=== PATIENT | female | born 1985 | race Caucasian/White ===

== ENCOUNTER 2021-12-22 14:32 | Emergency (ER) | payer SELFPAY ==
--- NOTE | ~2021-12-22 | CT_ITS ---
EXAMINATION: CT abdomen pelvis w con DATE: 12/22/2021 16:13 INDICATION: Abdominal pain TECHNIQUE: Computed tomography (CT) of the abdomen and pelvis was performed with 100 cc Omnipaque 350 intravenous contrast. Automated exposure control and iterative reconstruction technique were employe d. Exam dose: 740.55 mGy-cm total exam DLP. COMPARISON: None. FINDINGS: The lung bases are clear. Normal heart size. No pericardial or pleural effusion. There are multiple gallstones. There is borderline gallbladder wall thickening/edema. Acute or chrome cleaner nicolasa cholecystitis cannot be excluded. No bile duct or pancreatic dilatation. No hepatic, pancreatic or splenic space occupying mass lesion. Normal morphology of the adrenal glands. 6 mm right renal cyst. No urinary tract calculus or hydroureteronephrosis. Involuting peripherally enhancing 1.2 x 1.7 cm right and 1.3 x 1.9 cm left ovarian cysts. Small fr ee fluid collection in the posterior cul de sac. IUD within uterus. Occasional small bowel and colonic air fluid levels, suggesting enterocolitis or mild adynamic ileus. No bowel obstruction or free air. Small fat containing umbilical hernia. Included skeletal structures are unremarkable. IMPRESSION: Cholelithiasis; cannot exclude acute or chronic cholecystitis Reviewed, dictated and finalized at [facility]. Reviewed, dictated and finalized at [facility].
[2021-12-22 14:40] VITALS: BP 135/88; PULSE 74; RESP 16; TEMP 36.6; O2SAT 100
--- NOTE | 2021-12-22 14:56 | ECG_ITS ---
Measurements Intervals [place] Rate: 50 P: 31 FL: 137 QRS: -1 QRSD: 78 T: 36 QT: 438 QTc: 401 Interpretive Statements SINUS BRADYCARDIA WITH SINUS ARRHYTHMIA DELAYED PRECORDIAL R/S TRANSITION BASELINE ARTIFACT- II, III, AVF, V5 BORDERLINE ECG NO PREVIOUS ECG AVAILABLE FOR COMPARISON Electronically Signed On 12-22-2021 16:50:49 CDT by Billy Mckeon D.O.
[2021-12-22] MEDS: SODIUM CHLORIDE 0.9% IV 1,000 ML 999 ML IV CONT (15:13)
[2021-12-22 15:14] LABS: Basophils Absolute Auto 0.05 K/mm3 (0.00-0.10); Basophils Percent Auto 0.6 % (0.0-1.0); Eosinophils Absolute Auto 0.08 K/mm3 (0.02-0.50); Hematocrit 46.2 % (35.0-49.0); Hemoglobin 15.3 g/dL (12.0-15.0); Immature Granulocyte Absolute 0.02 K/mm3 (0.00-0.00); Immature Granulocyte Percent A 0.2 % (0.0-0.0); Lymphocytes Absolute Auto 2.08 K/mm3 (1.10-4.50); Lymphocytes Percent Auto 25.9 % (18.0-42.0); Mean Corpuscular HGB Conc 33.1 g/dL (32.0-36.0); Mean Corpuscular Hemoglobin 30.7 pg (27.0-31.0); Mean Corpuscular Volume 92.8 fL (78.0-102.0); Mean Platelet Volume 9.6 fl (9.2-11.8); Monocytes Absolute Auto 0.56 K/mm3 (0.10-0.90); Neutrophils Absolute Auto 5.2 K/mm3 (1.7-7.2); Neutrophils Percent Auto 65.3 % (50.0-70.0); Platelet Count Result 269 K/mm3 (150-420); Red Blood Count 4.98 M/mm3 (4.20-5.40); Red Cell Distribution Width 13.4 % (11.6-14.4)
[2021-12-22] MEDS: PANTOPRAZOLE SODIUM IV 40 MG VIAL IV PUSH (15:14)
[2021-12-22] MEDS: ONDANSETRON INJ 4 MG/2 ML VIAL IV PUSH (15:14)
[2021-12-22 15:15] LABS: Add Urine Microscopic? YES; Bilirubin Urine 1+ (Negative); Blood Urine 2+ (Negative); Color Urine Yellow (Yellow); Glucose Urine UA Negative (Negative); Ketones Urine 3+ (Negative); Leukocyte Esterase Ur 2+ (Negative); Nitrate Urine Negative (Negative); Protein Urine 1+ (Negative); Specific Grav Ur >= 1.030 (1.010-1.020); Urobilinogen Urine 0.2 mg/dL (0.2-1.0)
[2021-12-22 15:22] LABS: Appearance Urine Cloudy (Clear); Bacteria Urine 2+ /hpf; Pregnancy On Board Control Positive; Squamous Epithelial Cell Urine Many /hpf (Few); Urine Pregnancy Test Negative; WBC Urine 16-20 /hpf (0-3)
[2021-12-22 15:32] LABS: Lactic Acid Reflex 0.9 mmol/L (0.4-2.0)
[2021-12-22 15:35] LABS: Alanine Aminotransferase 27 U/L (14-59); Albumin Level 3.9 g/dL (3.4-5.0); Alkaline Phosphatase 131 U/L (46-116); Anion Gap 11 mmol/L (8-16); Aspartate Amino Transferase 19 U/L (15-37); Bilirubin,Total 1.1 mg/dL (0.00-1.00); Blood Urea Nitrogen 4 mg/dL (7-18); Calcium 9.2 mg/dL (8.5-10.1); Carbon Dioxide 27 mmol/L (21-32); Chloride 101 mmol/L (98-108); Estimated CRCL calculation 80 ml/min; Estimated Glomerular Filt Rate > 60; Glucose 92 mg/dL (70-99); Lipase 38 U/L (73-393); Osmolality Calculated 284 mOsm/kg (285-295); Potassium 3.3 mmol/L (3.5-5.1); Sodium 139 mmol/L (136-145); Total Protein 7.6 g/dL (6.4-8.2)
[2021-12-22 15:39] LABS: CRP 0.3 mg/dL (0.0-0.9); Troponin I < 4.0 ng/L (0.00-60.4)
--- NOTE | 2021-12-22 16:48 | ED.ABDPAIN ---
HPI - Abdominal Pain General Chief Complaint: Abdominal Pain Stated Complaint: stomach pain Time Seen by Provider: 12/22/21 14:36 Source: patient Mode of arrival: ambulatory Limitations: no limitations History of Present Illness HPI narrative: This is a 36-year-old female that presents with abdominal pain localizing to the epigastric area with burning sensation does have some mild dysuria with no fever chills no shortness of breath no chest pain, there is no flank pain no hematuria. MD elicited complaint: abdominal pain Pertinent past history: none Onset (ago): day(s) Pain Consistency: constant Location: epigastric Severity: moderate Quality: burning Radiation: none Migration to: no migration Exacerbating factors: eating Relieving factors: nothing Related Data Allergies Allergy/AdvReac Type Severity Reaction Status Date / Time tramadol Allergy Unknown UNKNOWN Verified 12/22/21 15:41 Review of Systems Review of Systems: All systems reviewed & are unremarkable except as noted in HPI and below PMFSH Past Medical History Medical History Patient denies medical problems Exam Const: General: healthy appearing, no acute distress and alert Limitations: no limitations HENMT: Head: normal to inspection General nose exam: Normal external nose present Face and sinus: normal facial exam Mouth: Yes Normal oral and palatal mucosa present Eyes: Conjunctivae: conjunctivae normal EOM: EOMs intact bilaterally Neck: Neck: normal visual inspection Chest: Chest palpation & inspection: normal inspection of the chest Resp: Effort & Inspection: normal respiratory effort Auscultation: clear to auscultation bilaterally Cardio: Rate: regular rate Rhythm: regular rhythm GI: GI Palp: Yes Soft to palpation and Yes Tenderness to palpation present (GI) Skin: General skin exam: normal color Rashes: no rashes Neuro: General: patient oriented x3, moves all extremities, no meningeal signs and no focal motor deficits Extrem: General: normal to inspection and no clubbing, cyanosis or edema Psych: Mental Status: mental status grossly normal Affect: normal affect Course Course Emergency Course: EKG and labs reviewed with patient urinalysis shows sole patient has urinary tract infection CT scan performed shows that some possible cholelithiasis. Patient received IV fluids Protonix and Zofran. Vital Signs Vital signs: Vital Signs Temperature 36.6 C 12/22/21 14:40 Pulse Rate 74 12/22/21 14:40 Respiratory Rate 16 09/22/22 14:40 Blood Pressure 135/88 12/22/21 14:40 Pulse Oximetry 100 12/22/21 14:40 Oxygen Delivery Room Air 12/22/21 14:40 Temperature 36.6 C 12/22/21 14:40 Pulse Rate 74 12/22/21 14:40 Respiratory Rate 16 12/22/21 14:40 Blood Pressure 135/88 12/22/21 14:40 Pulse Oximetry 100 12/22/21 14:40 Oxygen Delivery Room Air 12/22/21 14:40 MDM - Abdominal Pain Lab Data Result diagrams: 12/22/21 15:08 12/22/21 15:08 Labs: Lab Results 12/22/21 12/22/21 12/22/21 Range/Units 15:08 15:08 15:08 WBC 8.0 (4.8-10.8) K/mm3 RBC 4.98 (4.20-5.40) M/mm3 Hgb 15.3 H (12.0-15.0) g/dL Hct 46.2 (35.0-49.0) % MCV 92.8 (78.0-102.0) fL MCH 30.7 (27.0-31.0) pg MCHC 33.1 (32.0-36.0) g/dL RDW 13.4 (11.6-14.4) % Plt Count 269 (150-420) K/mm3 MPV 9.6 (9.2-11.8) fl Immature Gran % (Auto) 0.2 H (0.0-0.0) % Neut % (Auto) 65.3 (50.0-70.0) % Lymph % (Auto) 25.9 (18.0-42.0) % Sutton % (Auto) 7.0 (2.0-11.0) % Eos % (Auto) 1.0 (1.0-6.0) % Baso % (Auto) 0.6 (0.0-1.0) % Lymph # (Auto) 2.08 (1.10-4.50) K/mm3 Sutton # (Auto) 0.56 (0.10-0.90) K/mm3 Eos # (Auto) 0.08 (0.02-0.50) K/mm3 Baso # (Auto) 0.05 (0.00-0.10) K/mm3 Abs Immat Gran (auto) 0.02 H (0.00-0.00) K/mm3 Absolute Neuts (auto) 5.2 (1.7-7.2) K/mm3 Absolu
[2021-12-22 17:03] VITALS: BP 132/85; PULSE 58; RESP 16; O2SAT 98
[2021-12-22] MEDS: cefTRIAXone 1 GM, LIDOCAINE HCL 1% LOCAL INJ 2.1 ML IM (17:06)
--- NOTE | 2021-12-23 13:53 | PC.NURSE ---
prescriptions called into [facility] in [facility] is closed today for staffing issues.
== END 2021-12-22 17:19 | disposition home or self-care (01) ==
PROVIDERS: Emergency Provider Emergency Medicine
DX: R10.13 Epigastric pain (principal); N30.00 Acute cystitis without hematuria
CPT/HCPCS: 36415; 74177; 80053; 81001; 81025; 83605; 83690; 84484; 85025; 86140; 93005; 96361; 96372; 96374; 96375; 99284; C9113; J0696; J2405; J7030; Q9967

== ENCOUNTER 2022-07-15 14:05 | Inpatient (IN) | payer MEDICAID, SELFPAY ==
[2022-07-15] VITALS (14 sets, daily range): BP systolic 150–173; BP diastolic 89–110; PULSE 62–76; RESP 15–22; TEMP 36.6–36.9; O2SAT 98–100
--- NOTE | ~2022-07-15 | XR_ITS ---
EXAMINATION: XR ERCP DATE: 07/21/2022 14:06 INDICATION: EXAMINATION: XR ERCP DATE: 07/21/2022 14:06 INDICATION: Gallstones TECHNIQUE: 3 fluoroscopic images of the right upper quadrant were obtained during ERCP performed by Alisa Noyola. Radiologist was not present for the imaging or procedure. The amount of fluorosco py time used during this procedure was 3.0 minutes. COMPARISON: 07/19/2022 FINDINGS: Endoscopic cannulation of the common bile duct with retrograde injection of contrast and advancement of a wire into the common bile duct and right side of the intrahepatic biliary tree. The previously s een irregular filling defects in the common bile duct and common hepatic duct are no longer visualize d. Ovoid filling defect with smooth margins surrounding the wire at the distal common bile duct likel y represents a balloon. No other filling defects to suggest residual choledocholithiasis. IMPRESSION: 1. No evident residual choledocholithiasis. Correlate with procedure note for further detail. TECHNIQUE: Multiple spot fluoroscopic images of the right upper quadrant were obtained during endosco pic retrograde cholangiopancreatography (ERCP) performed by . Radiologist was not present for the ave ging or procedure. The amount of fluoroscopy time used during this procedure was minutes. COMPARISON: None. FINDINGS: IMPRESSION: 1. Please refer to the ERCP procedure note for additional details. Reviewed, dictated and finalized at location [facility]. IMPRESSION: 1. No evident residual choledocholithiasis. Correlate with procedure note for sadaf french detail. TECHNIQUE: Multiple spot fluoroscopic images of the right upper quadrant were o btained during endoscopic retrograde cholangiopancreatography (ERCP) performed by . Radiologist was not present for the imaging or procedure. The amount of fl uoroscopy time used during this procedure was minutes. COMPARISON: None. FINDINGS:
--- NOTE | ~2022-07-15 | XR_ITS ---
EXAMINATION: XR ERCP DATE: 07/18/2022 12:40 INDICATION: Gallstones TECHNIQUE: 2 spot fluoroscopic images of the right upper quadrant were obtained during endoscopic ret rograde cholangiopancreatography (ERCP) performed by Dr. Barrera. Radiologist was not present for the imaging or procedure. The amount of fluoroscopy time used during this procedure was 6.1 joann jordyn. COMPARISON: None. FINDINGS: Images demonstrate endoscopic cannulation and retrograde contrast opacification of the common bile du ct. A wire has been advanced and is coiled in the proximal common bile duct. On the second image ther e appears to be a lucent filling defect within the loop of the coiled wire which could represent the large gallstone identified on prior CT. IMPRESSION: 1. Large filling defect within the common bile duct which likely represents the common bile duct ston e seen on prior CT. Please refer to the ERCP procedure note for additional details. Reviewed, dictated and finalized at location [facility]. IMPRESSION: 1. Large filling defect within the common bile duct which likely represents the common bile duct stone seen on prior CT. Please refer to the ERCP procedure no te for additional details.
--- NOTE | ~2022-07-15 | XR_ITS ---
EXAMINATION: 07/19/2022 16:22 DATE: 07/19/2022 16:45 CDT INDICATION: Cholecystectomy, intraoperative cholangiogram TECHNIQUE: Intraoperative cholangiogram with a single contrast run(s) provided for review. 44 fluoros copic images. 21 seconds of fluoroscopy. FINDINGS: There is cannulation and contrast administration into the cystic duct remnant. There are mu ltiple filling defects in the common hepatic and common bile ducts, consistent with choledocholithias is. There is flow of contrast into the duodenum. IMPRESSION: 1. . Filling defects of the common hepatic and common bile ducts, consistent with choledocholithiasi s. Reviewed, dictated and finalized at location [facility]. IMPRESSION: 1. . Filling defects of the common hepatic and common bile ducts, consistent w ith choledocholithiasis.
--- NOTE | ~2022-07-15 | CT_ITS ---
EXAMINATION: CTA chest PE abdomen pel DATE: 07/15/2022 16:19 INDICATION: Right upper quadrant abdominal pain and back pain. Jaundice. TECHNIQUE: Computed tomography (CT) pulmonary angiogram of the chest was performed with 100 mL Omnipa que-350 intravenous contrast. Additional 3D reconstructions utilizing coronal maximum intensity proje ction (MIP) were performed. CT of the abdomen and pelvis was performed with intravenous contrast util izing the same contrast bolus following a short delay. Automated exposure control and iterative recon struction technique were employed. The dose-length product was 1667.77 mGy-cm. COMPARISON: CT abdomen and pelvis dated 12/22/2021 FINDINGS: Chest: Excellent contrast opacification of the pulmonary arteries. No significant motion artifact. There is mild streak artifact from dense contrast in the superior vena cava and right atrium. This appears to account for the intraluminal linear increased attenuation in the superior segmental pulmonary artery. No dominant embolism. Mild emphysema. No pneumonia, pulmonary edema, pleural effusion or pneumothora x. Heart size is normal. No pericardial effusion. Thoracic aorta is normal in caliber with no dissect ion. No pathologically enlarged thoracic lymphadenopathy. Mild thoracic spondylosis. Abdomen/pelvis: There are several gallstones within the otherwise normal gallbladder. There is moderate intrahepatic biliary ductal dilation with dilation of the hepatic and cystic ducts. There is intraluminal filling defect with meniscus sign best appreciated on the coronal imaging consistent with likely obstructing gallstone. The more distal common bile duct is normal in caliber. Spleen, pancreas, bilateral adrenal glands and left kidneys are normal. 7 mm low-attenuation cyst at the lower pole of the right kidney. Bowels including the appendix are normal. T-shaped IUD in expected position within the anteverted ut erus. Bladder and bilateral adnexa are unremarkable. No free intraperitoneal gas or fluid. No patholo gically enlarged abdominal or pelvic lymphadenopathy. Mild lumbar spondylosis. IMPRESSION: 1. Cholelithiasis and obstructing choledocholithiasis with moderate more proximal biliary ductal dila tion. 2. No pulmonary embolism or other acute cardiopulmonary disease. 3. IUD in expected position. Reviewed, dictated and finalized at location [facility]. IMPRESSION: 1. Cholelithiasis and obstructing choledocholithiasis with moderate more proxim al biliary ductal dilation. 2. No pulmonary embolism or other acute cardiopulmonary disease. 3. IUD in expected position.
[2022-07-15 15:01] LABS: Basophils Absolute Auto 0.1 K/mm3 (0.0-0.1); Basophils Percent Auto 0.6 % (0.2-1.2); Eosinophils Absolute Auto 0.1 K/mm3 (0-0.3); Eosinophils Percent Auto 1.1 % (0-4.4); Hematocrit 41.4 % (37.0-47.0); Hemoglobin 13.6 g/dL (12.0-15.0); Immature Granulocyte Absolute 0.03 K/mm3 (0.00-0.031); Immature Granulocyte Percent A 0.3 % (0-0.5); Lymphocytes Absolute Auto 2.01 K/mm3 (0.9-3.2); Lymphocytes Percent Auto 20.2 % (18.3-44.2); Mean Corpuscular HGB Conc 32.9 g/dl (32-36); Mean Corpuscular Hemoglobin 30.9 pg (26-34); Mean Corpuscular Volume 94.1 fl (80-100); Mean Platelet Volume 9.4 fl (7.4-10.4); Monocytes Absolute Auto 0.8 K/mm3 (0.1-0.6); Monocytes Percent Auto 7.6 % (2.6-8.5); Neutrophils Percent Auto 70.2 % (45.5-73.1); Platelet Count Result 329 k/mm3 (150-375); Red Cell Distribution Width 14.8 % (11.5-14.5); White Blood Count 9.9 K/mm3 (4.5-10.0)
--- NOTE | 2022-07-15 15:01 | ED.GENADULT ---
HPI - General Adult General Chief complaint: Unspecified Stated complaint: jaundice Time Seen by Provider: 07/15/22 14:34 History of Present Illness HPI narrative: Patient is a 37-year-old female presenting with jaundice. Patient states that over the last year she has had intermittent epigastric and right upper quadrant pain that radiates into her mid back. States that she has been seen numerous times and has been diagnosed with GERD. She has been on omeprazole and famotidine without relief. Patient states that approximately 6 weeks ago she noticed that her urine turned brown. She was seen at urgent care and was told that it did not look like she had a UTI but they treated her with antibiotics anyway. States that her symptoms improved over several days. Around this time she also noticed that her stool became pale and floating. States that she has continued to have intermittent epigastric and right upper quadrant pain that goes into her mid back. Patient states that she has been persistently nauseated but has not vomited. States that she is able to tolerate p.o. intake. States that this morning she woke up and looked in the mirror and noticed that she was yellow prompting her visit today. She reports diffuse itching but no focal rashes. No fevers or chills, numbness or weakness, chest pain, shortness of breath, cough, dysuria. Patient does report left leg swelling for several days approximately a month ago. Related Data Home Medications Medication Instructions Recorded Confirmed acetaminophen 500 mg tablet 500 mg PO Q6H PRN Headache 07/15/22 07/15/22 famotidine 20 mg tablet 20 mg PO DAILY 07/15/22 07/15/22 Allergies Allergy/AdvReac Type Severity Reaction Status Date / Time tramadol Allergy Unknown UNKNOWN Verified 07/19/22 13:12 Review of Systems Review of Systems: All systems reviewed & are unremarkable except as noted in HPI and below PMFSH Past Medical History Medical History Choledocholithiasis Cholelithiasis Chronic GERD Obstructive jaundice Upper abdominal pain Surgical History Surgical History H/O section Family History Family History Other Lupus Mother Cancer Grandparent Heart disease Dementia Social History Social History Social History: The patient lives with her fiance and has 2 children. She is the homemaker. The patient quit smoking but continues to vape. She occasionally drinks maybe 1 alcoholic beverage a week. Code status full code Smoking status: Current every day smoker Tobacco type: e-cigarettes/vaping Alcohol intake: current Drinks per week: 2 Substance use: never Lack of Transportation: No Lack of Food: Never True Current Housing: I Have Housing Concerned About Future Housing: YES Difficulty Paying Gas/Electric Bills: No Difficulty Paying for Meds: No Currently Unemployed: No Education: Trade/Vocational Certificate Difficulty w/ Childcare or Family Care: No Spiritual care concerns: No Exam Narrative: GENERAL: Nontoxic, pleasant and cooperative, jaundiced HEAD: Normocephalic, atraumatic. EYES: PERRLA and EOMI. +scleral icterus ENT: Nares clear, no rhinorrhea or epistaxis. Mucous membranes moist. NECK: Supple. CHEST: Clear to auscultation. No respiratory distress. HEART: Regular rate and rhythm. No murmur heard. Normal peripheral pulses. ABDOMEN: Soft, mild epigastric and right upper quadrant tenderness, no guarding or rebound EXTREMITIES: Normal range of motion. No edema. SKIN: Warm, dry, no rash. NEURO: No focal deficits. Alert and oriented x3. PSYCH: Normal mood and affect. Course Consultations Consultation #1: Spoke with Dr. Lees previous regarding CT results and blood work. He bolivar
[2022-07-15 15:15] LABS: Alanine Aminotransferase 130 U/L (6-35); Albumin Level 4.5 g/dL (3.5-5.1); Alkaline Phosphatase 588 U/L (38-126); Anion Gap 14 mmol/L (8-16); Aspartate Amino Transferase 100 U/L (14-36); Bilirubin,Total 10.7 mg/dL (0.2-1.3); Blood Urea Nitrogen 3 mg/dL (7-17); Calcium 9.8 mg/dL (8.4-10.2); Carbon Dioxide 27 mmol/L (22-30); Chloride 98 mmol/L (98-107); Estimated CRCL calculation 110 ml/min; Estimated Glomerular Filt Rate > 60; Glucose 133 mg/dL (65-110); Potassium 2.9 mmol/L (3.4-5.0); Sodium 139 mmol/L (137-145)
[2022-07-15] MEDS: SODIUM CHLORIDE 0.9% IV 1,000 ML 999 ML IV CONT (15:26)
[2022-07-15 15:43] LABS: Pregnancy On Board Control Positive; Urine Pregnancy Test Negative
[2022-07-15 15:45] LABS: Hepatitis B Surface Antigen Negative (Negative)
[2022-07-15 15:51] LABS: HAV RESULT Negative (Negative); Hepatitis B Core IgM Result Negative (Negative)
[2022-07-15 15:58] LABS: Appearance Urine Clear (Clear); Bacteria Urine Rare /hpf; Bilirubin Urine Negative (Negative); Blood Urine Trace (Negative); Color Urine Dark Yellow (Yellow); Glucose Urine UA Negative (Negative); Ketones Urine Negative (Negative); Leukocyte Esterase Ur Trace LEU/UL (Negative); Need Manual Microscopic Reviewed; Nitrate Urine Negative (Negative); Non Pathogenic Casts 0-2; Protein Urine Negative (Negative); RBC Urine 0-2 /hpf (0-2); Specific Grav Ur 1.001 (1.001-1.035); Squamous Epithelial Cell Urine None seen /hpf (Few); Urobilinogen Urine 0.2 mg/dL (<2.0); WBC Urine 0-5 /hpf
[2022-07-15 15:59] LABS: Add Urine Microscopic? YES
[2022-07-15 16:03] LABS: Hepatitis C Virus Antibody Negative (Negative)
[2022-07-15 16:22] LABS: Lipase 66 U/L (23-300)
--- NOTE | 2022-07-15 18:50 | PM.IMHP ---
H&P: HPI History of Present Illness Date/Time: 07/15/22 18:50 Chief Complaint: Jaundice Narrative: This is a 37-year-old female patient who has been complaining of epigastric discomfort and GERD for at least 10 years. The patient stated over the last year she has had intermittent epigastric and right upper quadrant pain that radiates to her mid back. The patient stated that she has tried different types of acid reflux reduce her and PPIs. She has been on omeprazole and famotidine without relief. The patient stated approximately 6 weeks ago her urine turned brown. She went to urgent care. She was told that it really did not look like a UTI but was started on antibiotics anyway. Her symptoms improved over several days. And then the patient noticed that her stools became pale and they were floating. This morning the patient woke up and noticed that she was jaundiced in the mirror. The patient reports severe itching. The patient also reports that her left leg was swollen month ago for few days but has gone back to normal now. Her potassium is found to be 2.9 and it was replaced. Her total bilirubin was 10.7. AST is 100. ALT is 130. Her urine is negative. The patient was negative for hepatitis A,B or C. chest abdomen pelvis CTA was read as the following 1. Cholelithiasis and obstructing choledocholithiasis with moderate more proximal biliary ductal dilation. 2. No pulmonary embolism or other acute cardiopulmonary disease. 3. IUD in expected position. The patient was started on IV fluids and given potassium. Surgery and GI have been consulted. The patient is being admitted for observation status Review of Systems Review of Systems: All systems reviewed & are unremarkable except as noted in HPI and below Constitutional: Constitutional: Reports as per HPI and Reports no additional constitutional complaints Eyes: Eyes: Reports as per HPI and Reports no additional eye complaints ENT: Reports system reviewed and no additional complaints, except as documented and Reports Normal hearing present Cardiovascular: Cardiovascular: Reports no additional cardiovascular complaints Respiratory: Respiratory: Reports no additional respiratory complaints and Reports no additional respiratory complaints Gastrointestinal: Gastrointestinal: Reports as per HPI and Reports no additional gastrointestinal complaints Musculoskeletal: Musculoskeletal: Reports no additional musculoskeletal complaints Integumentary/Breasts: Skin/Breast: Reports system reviewed and no additional complaints, except as docu and Reports as per HPI Neurologic: Reports system reviewed and no additional complaints, except as documented, Reports as per HPI and Reports Normal hearing present Psychiatric: Psychiatric: Reports no additional psychiatric complaints and Reports as per HPI Endocrine: Endocrine: Reports no additional endocrine complaints Hematologic/Lymphatic: Hematologic/Lymphatic: Reports no additional hematologic/lymphatic complaints Allergic/Immunologic: Allergic/Immunologic: Reports no additional allergic/immunologic complaints PMFSH Past Medical History Medical History (Updated 07/15/22 @ 22:02 by Mgao Nunez NP) Choledocholithiasis Chronic GERD Surgical History Surgical History (Updated 07/15/22 @ 21:50 by Mago Nunez NP) H/O section Family History Family History (Updated 07/15/22 @ 21:51 by Mago Nunez NP) Other Lupus Mother Cancer Grandparent Heart disease Dementia Social History Social History (Updated 07/15/22 @ 21:52 by Mago Nunez NP) Social History: The patient lives with her fiance and has 2 children. She is the homemaker. The patient quit smoking but continues to vape. She occasionally drinks maybe 1 alcoholic beverage a week. Code status full code Smoking status: Current every day smoker Tobacco type: e-cigarettes/vaping Alcohol intake: current Drinks per week: 2 Substance
[2022-07-15] MEDS: SODIUM CHLORIDE 0.9% IV 1,000 ML 100 ML IV CONT (20:48)
[2022-07-15] MEDS: POTASSIUM CHLORIDE INJ 40 MEQ in SODIUM CHLORIDE 0.9% IV 500 ML 130 MEQ IVPB (21:26)
[2022-07-16 03:16] LABS: Anion Gap 6 mmol/L (8-16); Blood Urea Nitrogen 3 mg/dL (7-17); Calcium 8.5 mg/dL (8.4-10.2); Carbon Dioxide 26 mmol/L (22-30); Chloride 105 mmol/L (98-107); Estimated CRCL calculation 130 ml/min; Estimated Glomerular Filt Rate > 60; Glucose 109 mg/dL (65-110); Potassium 3.3 mmol/L (3.4-5.0); Sodium 137 mmol/L (137-145)
[2022-07-16 05:39] LABS: Basophils Absolute Auto 0.1 K/mm3 (0.0-0.1); Basophils Percent Auto 0.8 % (0.2-1.2); Eosinophils Absolute Auto 0.3 K/mm3 (0-0.3); Eosinophils Percent Auto 3.7 % (0-4.4); Hematocrit 37.3 % (37.0-47.0); Hemoglobin 12.1 g/dL (12.0-15.0); Immature Granulocyte Absolute 0.02 K/mm3 (0.00-0.031); Immature Granulocyte Percent A 0.3 % (0-0.5); Lymphocytes Absolute Auto 2.21 K/mm3 (0.9-3.2); Lymphocytes Percent Auto 28.9 % (18.3-44.2); Mean Corpuscular HGB Conc 32.4 g/dl (32-36); Mean Corpuscular Hemoglobin 30.6 pg (26-34); Mean Corpuscular Volume 94.4 fl (80-100); Mean Platelet Volume 9.6 fl (7.4-10.4); Monocytes Absolute Auto 0.6 K/mm3 (0.1-0.6); Monocytes Percent Auto 7.3 % (2.6-8.5); Neutrophils Absolute Auto 4.5 K/mm3 (1.3-6.7); Platelet Count Result 281 k/mm3 (150-375); Red Blood Count 3.95 M/mm3 (4.2-5.4); White Blood Count 7.6 K/mm3 (4.5-10.0)
[2022-07-16 05:45] LABS: Ammonia < 9 umol/L (9-30)
[2022-07-16 05:55] LABS: Alanine Aminotransferase 110 U/L (6-35); Albumin Level 3.8 g/dL (3.5-5.1); Alkaline Phosphatase 489 U/L (38-126); Anion Gap 7 mmol/L (8-16); Aspartate Amino Transferase 88 U/L (14-36); Bilirubin,Total 10.1 mg/dL (0.2-1.3); Blood Urea Nitrogen 3 mg/dL (7-17); Calcium 8.7 mg/dL (8.4-10.2); Carbon Dioxide 26 mmol/L (22-30); Chloride 105 mmol/L (98-107); Estimated CRCL calculation 130 ml/min; Estimated Glomerular Filt Rate > 60; Glucose 108 mg/dL (65-110); Magnesium 1.9 mg/dL (1.6-2.3); Phosphorus 3.2 mg/dL (2.5-4.5); Potassium 3.2 mmol/L (3.4-5.0); Sodium 138 mmol/L (137-145)
[2022-07-16 06:00] VITALS: BP 138/89; PULSE 72; RESP 18; TEMP 36.8; O2SAT 97
[2022-07-16 08:00] VITALS: PULSE 72
--- NOTE | 2022-07-16 08:25 | PC.NURSE ---
Patient admitted to floor with low potassium. At 6:30 pm I discussed her labs with Mago. Mago stated that she wants patient on tele and would place orders for potassium replacement. Order for tele placed this morning when I discovered that it was not in the system.
[2022-07-16] MEDS: FAMOTIDINE 20 MG/2 ML VIAL IV PUSH ×2 (08:48→20:33)
[2022-07-16] MEDS: SODIUM CHLORIDE 0.9% IV 1,000 ML 100 ML IV CONT ×2 (08:51→20:38)
--- NOTE | 2022-07-16 09:30 | WPDGICN ---
Assessment and Plan Assessment and plan (1) Choledocholithiasis: Code(s): K80.50 - Calculus of bile duct without cholangitis or cholecystitis without obstruction Status: Acute Assessment and Plan: will need ercp, most likely Sunday (wonder if spyglass/cholangioscopy in case I find large stone that may need lithotripsy) liquid diet for now will also consult surgery for lap marcela (2) Cholelithiasis: Code(s): K80.20 - Calculus of gallbladder without cholecystitis without obstruction Status: Acute Assessment and Plan: surgery to see (3) Upper abdominal pain: Code(s): R10.10 - Upper abdominal pain, unspecified Status: Acute Assessment and Plan: improved (4) Hypokalemia: Code(s): E87.6 - Hypokalemia Status: Acute Assessment and Plan: repleting (5) Obstructive jaundice: Code(s): K83.1 - Obstruction of bile duct Status: Acute Assessment and Plan: probably from stone/sludge, etc ercp, +/- spyglass GI Consult Note Consult date/time: 07/16/22 09:30 Reason for consult: elevated liver enzymes, choledocholithiasis HPI: Effie Whitmore is a 37 year old female who has been complaining of intermittent ruq with radiation to her back for 10 years after she had her son, will come every 3-5 months and started 6 hours after eating greasy meals but not always and eventually went away, she was told in the past that probably was related to GERD. Since last Summer pain was less severe but lasting longer and started 1-2 hours after eating, she tried different PPI without help. About 6 weeks ago noted that urine turned brown and had again upper abdominal pain, went to and given empirically abx even though urine was negative for infection. She came here because noted eyes became yellow and pale stools, also itching. ER blood work revealed potassium 2.9 and it was replaced.? Her total bilirubin was 10.7.? AST is 100.? ALT is 130.? Her urine is negative.? The patient was negative for hepatitis A,B or C. I reviewed chest abdomen pelvis CTA that showed Cholelithiasis and obstructing choledocholithiasis with moderate more proximal biliary ductal dilation. No pulmonary embolism. She denies pain now. No fever or chilss, only surgery is . Review of Systems Constitutional: Constitutional: Denies chills Eyes: Eyes: Denies blurry vision ENT: Reports Normal hearing present Cardiovascular: Cardiovascular: Denies chest pain Respiratory: Respiratory: Denies chest congestion Gastrointestinal: Gastrointestinal: Reports abdominal pain Genitourinary: Comments: dark urine Musculoskeletal: Musculoskeletal: Denies back pain Integumentary/Breasts: Skin/Breast: Denies rash Neurologic: Denies confusion Psychiatric: Psychiatric: Denies behavioral changes [facility] Past Medical History Medical History (Updated 07/16/22 @ 09:38 by Marty Barrera MD) Choledocholithiasis Cholelithiasis Chronic GERD Obstructive jaundice Upper abdominal pain Surgical History Surgical History (Updated 07/15/22 @ 21:50 by aMgo Nunez NP) H/O section Family History Family History (Updated 07/15/22 @ 21:51 by Mago Nunez NP) Other Lupus Mother Cancer Grandparent Heart disease Dementia Social History Social History (Updated 07/15/22 @ 21:52 by Mago Nunez NP) Social History: The patient lives with her fiance and has 2 children. She is the homemaker. The patient quit smoking but continues to vape. She occasionally drinks maybe 1 alcoholic beverage a week. Code status full code Smoking status: Current every day smoker Tobacco type: e-cigarettes/vaping Alcohol intake: current Drinks per week: 2 Substance use: never Lack of Transportation: No Lack of Food: Never True Current Housing: I Have Housing Concerned About Future Housing: YES Difficulty Paying Gas/Electric Bills: No Difficulty
--- NOTE | 2022-07-16 09:57 | PM.IMPN ---
Progress Note: A&P Assessment and Plan (1) Choledocholithiasis: Code(s): K80.50 - Calculus of bile duct without cholangitis or cholecystitis without obstruction Status: Acute Assessment and Plan: Clear liquid diet, appreciate GI and surgery consultation, ERCP scheduled for Sunday Patient is being evaluated for possible lap marcela (2) Chronic GERD: Code(s): K21.9 - Gastro-esophageal reflux disease without esophagitis Status: Acute Assessment and Plan: Continue with IV Pepcid (3) Hypokalemia: Code(s): E87.6 - Hypokalemia Status: Acute Assessment and Plan: Replace and recheck, magnesium within normal limits Plan DVT prophylaxis with SCDs GI prophylaxis not indicated Code status full code Subjective Date/time seen: 07/16/22 09:57 Interval history: 37-year-old female with abdominal pain found to have choledocholithiasis and cholelithiasis. No overnight events noted. No chest pain or shortness of breath. No nausea, vomiting or diarrhea. No fevers or chills. Review of Systems Review of Systems: 12 point review of systems was assessed and was negative except as noted in the HPI Exam Narrative: General: No acute distress, alert and oriented per baseline HEENT: Atraumatic, normocephalic, mucous membranes moist CV: Regular rate and rhythm, S1, S2 Lungs: Clear to auscultation bilaterally, no rales or crackles noted, no wheezes, good air entry Abdomen: Soft, nontender, nondistended Extremities: Normal to inspection Skin: No rashes noted, no lesions or wounds seen Psych: Euthymic, normal affect Objective Data Vital Signs Vital Signs: Vital Signs - 24 hr 07/15/22 14:18 07/15/22 15:27 07/15/22 15:29 Temperature 98 F 97.9 F Pulse Rate 69 74 76 Respiratory Rate 20 18 Blood Pressure 170/97 H 165/95 H Pulse Oximetry 100 100 Oxygen Delivery Room Air Room Air 07/15/22 15:00 07/15/22 18:03 07/15/22 18:15 Temperature Pulse Rate 71 73 68 Respiratory Rate 16 22 H 17 Blood Pressure 173/96 H Pulse Oximetry 99 100 99 Oxygen Delivery 07/15/22 18:16 07/15/22 15:30 07/15/22 16:00 Temperature Pulse Rate 68 65 62 Respiratory Rate 19 19 15 Blood Pressure 150/108 H 162/106 H 153/94 H Pulse Oximetry 100 100 100 Oxygen Delivery 07/15/22 16:30 07/15/22 17:00 07/15/22 17:30 Temperature Pulse Rate 64 65 63 Respiratory Rate 20 Blood Pressure 150/89 H 171/110 H 167/103 H Pulse Oximetry 98 100 99 Oxygen Delivery 07/15/22 18:00 07/15/22 21:26 07/16/22 06:00 Temperature 98.5 F 98.3 F Pulse Rate 67 68 72 Respiratory Rate 19 18 18 Blood Pressure 160/104 H 159/96 H 138/89 Pulse Oximetry 100 99 97 Oxygen Delivery 07/16/22 08:00 07/16/22 08:00 Temperature Pulse Rate 72 Respiratory Rate Blood Pressure Pulse Oximetry Oxygen Delivery Room Air Intake/Output Intake/Output: Intake & Output 07/13/22 07/14/22 07/15/22 07/16/22 23:59 23:59 23:59 23:59 Intake Total 1000 1520 Output Total 50 Balance 1000 1470 Meds/Results Medications: Active Medications Generic Name Dose Route Start Last Admin Trade Name Freq PRN Reason Stop Dose Admin Famotidine 20 mg 07/16/22 09:00 07/16/22 08:48 Famotidine 20 Mg/2 Ml Vial IV PUSH 20 mg Q12HR BOOM Administration Fentanyl Citrate 25 mcg 07/15/22 21:59 Fentanyl Citrate Inj (*Crx) 100 Mcg/2 Ml Vial IV PUSH Q4H PRN Pain Rated 7-10 Sodium Chloride 1,000 mls @ 100 mls/hr 07/15/22 18:50 07/16/22 08:51 Normal Saline Iv IV CONT 100 mls/hr .Q10H BOOM Administration Ondansetron HCl 4 mg 07/15/22 17:30 Ondansetron Inj 4 Mg/2 Ml Vial IV PUSH Q4H PRN Nausea Radiology Results: ITS Impressions Chest/Abdomen/Pelvis CTA 07/15/22 16:28 IMPRESSION: 1. Cholelithiasis and obstructing choledocholithiasis with moderate more proximal biliary ductal dilation. 2. No pulmonary embo
[2022-07-16 12:02] VITALS: PULSE 63
[2022-07-16 13:23] VITALS: BP 158/90; PULSE 60; RESP 18; TEMP 36.1; O2SAT 99
--- NOTE | 2022-07-16 14:42 | PM.CNGS ---
Assessment and Plan Assessment and plan (1) Choledocholithiasis: Code(s): K80.50 - Calculus of bile duct without cholangitis or cholecystitis without obstruction Status: Acute Assessment and Plan: I have reviewed the CT and discussed the findings with the patient. She has evidence of choledocholithiasis and cholelithiasis. She has significant hyperbilirubinemia related to the obstruction. Agree with GI plans for ERCP. Will await results of ERCP and potentially plan laparoscopic cholecystectomy. I have discussed that laparoscopic cholecystectomy would be recommended to prevent recurrent episodes common bile duct obstruction by gallstones. I discussed the procedure, risks, benefits, and alternatives. Questions were answered. (2) Cholelithiasis: Code(s): K80.20 - Calculus of gallbladder without cholecystitis without obstruction Status: Acute (3) Obstructive jaundice: Code(s): K83.1 - Obstruction of bile duct Status: Acute History of Present Illness Consult details Consult date: 07/16/22 Reason for consult: gallstones Requesting physician: Marty Barrera MD Narrative: This is a 37-year-old woman who I am asked to see for cholelithiasis. She presents with intermittent abdominal pains over the past 10 years. She has usually just gone to an urgent care or ER when she has severe attacks and was always told that it is GERD. She has been given acid reducers in the past without much relief. She does note that pains usually happen after she has eaten fried or greasy food. She had a recent attack of pain and was actually starting to feel better, but then just a few days ago she noted yellowing of her skin. She had never experienced this before, therefore she presented to the emergency department. Workup showed evidence of elevated liver enzymes and CT evidence of choledocholithiasis. She has been admitted for further treatment and GI has evaluated the patient. ERCP is being planned and surgery was requested to evaluate patient for eventual cholecystectomy. Patient does not have any current pain. She is mostly complaining of the jaundice and itching. Review of Systems Review of Systems: All systems reviewed & are unremarkable except as noted in HPI and below Constitutional: Constitutional: Denies chills and Denies fever(s) Eyes: Eyes: Denies change in vision ENT: Denies hearing loss, Denies neck pain and Denies sore throat Cardiovascular: Cardiovascular: Denies chest pain and Denies dyspnea Respiratory: Respiratory: Denies cough, Denies dyspnea and Denies wheezing Gastrointestinal: Gastrointestinal: Reports as per HPI Genitourinary: Genitourinary: Denies hematuria, Denies dysuria and Reports other (Dark urine) Musculoskeletal: Musculoskeletal: Denies arthralgias, Denies joint swelling and Denies neck pain Integumentary/Breasts: Skin/Breast: Reports change in pigmentation (Yellow) Allergic/Immunologic: Allergic/Immunologic: Denies wheezing PMFSH Past Medical History Medical History Choledocholithiasis Cholelithiasis Chronic GERD Obstructive jaundice Upper abdominal pain Surgical History Surgical History H/O section Family History Family History Other Lupus Mother Cancer Grandparent Heart disease Dementia Social History Social History Social History: The patient lives with her fiance and has 2 children. She is the homemaker. The patient quit smoking but continues to vape. She occasionally drinks maybe 1 alcoholic beverage a week. Code status full code Smoking status: Current every day smoker Tobacco type: e-cigarettes/vaping Alcohol intake: current Drinks per week: 2 Substance use: never Lack of [place]
[2022-07-16 21:24] VITALS: BP 181/92; PULSE 61; RESP 14; TEMP 36.3; O2SAT 98
[2022-07-16 23:24] VITALS: BP 152/83
[2022-07-17] VITALS (8 sets, daily range): BP systolic 141–187; BP diastolic 82–104; PULSE 56–75; RESP 14–18; TEMP 36.1–36.5; O2SAT 99–100
[2022-07-17] MEDS: SODIUM CHLORIDE 0.9% IV 1,000 ML 100 ML IV CONT (06:23)
[2022-07-17 06:26] LABS: Basophils Absolute Auto 0.1 K/mm3 (0.0-0.1); Basophils Percent Auto 0.9 % (0.2-1.2); Eosinophils Absolute Auto 0.4 K/mm3 (0-0.3); Eosinophils Percent Auto 4.7 % (0-4.4); Hematocrit 37.4 % (37.0-47.0); Hemoglobin 11.8 g/dL (12.0-15.0); Immature Granulocyte Absolute 0.03 K/mm3 (0.00-0.031); Immature Granulocyte Percent A 0.4 % (0-0.5); Lymphocytes Percent Auto 31.1 % (18.3-44.2); Mean Corpuscular HGB Conc 31.6 g/dl (32-36); Mean Corpuscular Hemoglobin 31.1 pg (26-34); Mean Corpuscular Volume 98.4 fl (80-100); Mean Platelet Volume 10.5 fl (7.4-10.4); Monocytes Absolute Auto 0.5 K/mm3 (0.1-0.6); Monocytes Percent Auto 6.8 % (2.6-8.5); Neutrophils Absolute Auto 4.2 K/mm3 (1.3-6.7); Neutrophils Percent Auto 56.1 % (45.5-73.1); Platelet Count Result 230 k/mm3 (150-375); Red Cell Distribution Width 15.3 % (11.5-14.5); White Blood Count 7.4 K/mm3 (4.5-10.0)
[2022-07-17 06:41] LABS: Alanine Aminotransferase 102 U/L (6-35); Albumin Level 3.6 g/dL (3.5-5.1); Alkaline Phosphatase 446 U/L (38-126); Anion Gap 10 mmol/L (8-16); Aspartate Amino Transferase 83 U/L (14-36); Bilirubin,Total 10.3 mg/dL (0.2-1.3); Calcium 8.3 mg/dL (8.4-10.2); Carbon Dioxide 22 mmol/L (22-30); Chloride 106 mmol/L (98-107); Estimated CRCL calculation 130 ml/min; Estimated Glomerular Filt Rate > 60; Glucose 103 mg/dL (65-110); Potassium 3.2 mmol/L (3.4-5.0); Sodium 138 mmol/L (137-145)
[2022-07-17 06:59] LABS: Blood Urea Nitrogen < 2 mg/dL (7-17)
[2022-07-17] MEDS: FAMOTIDINE 20 MG/2 ML VIAL IV PUSH ×2 (09:00→20:02)
--- NOTE | 2022-07-17 10:28 | PM.PNGS ---
Progress Note: A&P Assessment and Plan (1) Choledocholithiasis: Code(s): K80.50 - Calculus of bile duct without cholangitis or cholecystitis without obstruction Status: Acute Assessment and Plan: CTA showed evidence of choledocholithiasis and cholelithiasis. She has obstructive jaundice with total bilirubin at 10.3 today. GI following and planning ERCP. We will continue to follow along to plan optimal timing of laparoscopic cholecystectomy depending on ERCP results. (2) Cholelithiasis: Code(s): K80.20 - Calculus of gallbladder without cholecystitis without obstruction Status: Acute (3) Obstructive jaundice: Code(s): K83.1 - Obstruction of bile duct Status: Acute Plan I have discussed the patient's case and plan of care with Dr. Moreno. Subjective Subjective Date/Time Seen: 07/17/22 09:28 Patient reports: no new complaints and afebrile Interval history: Patient feeling well today. No specific complaints. She felt full after full liquids this morning, but no abdominal pain or nausea. Total bilirubin this morning 10.3. Review of Systems Review of Systems: All systems reviewed & are unremarkable except as noted in HPI and below Exam Const: General: comfortable; No acute distress Orientation/consciousness: patient oriented x3 GI: Inspection: non-distended GI Palp: Yes Soft to palpation, Yes Tenderness to palpation present (GI) (mild TTP in RUQ), No Guarding due to palpation present (GI) and No Rebound tenderness present Auscultation: normal bowel sounds Skin: General skin exam: jaundice Objective Data Vital Signs Vital Signs: Vital Signs - 24 hr 07/16/22 12:02 07/16/22 13:23 07/16/22 21:24 Temperature 96.9 F L 97.3 F L Pulse Rate 63 60 61 Respiratory Rate 18 14 Blood Pressure 158/90 H 181/92 H Pulse Oximetry 99 98 Oxygen Delivery 07/16/22 23:24 07/17/22 05:54 07/17/22 08:00 Temperature 97.4 F L Pulse Rate 64 64 Respiratory Rate 18 18 Blood Pressure 152/83 H 141/82 H Pulse Oximetry 99 99 Oxygen Delivery Room Air Intake/Output Intake/Output: Intake & Output 07/14/22 07/15/22 07/16/22 07/17/22 23:59 23:59 23:59 23:59 Intake Total 1000 3842 1940 Output Total 1050 1800 Balance 1000 2792 140 Meds/Results Medications: Active Medications Generic Name Dose Route Start Last Admin Trade Name Marlee PRN Reason Stop Dose Admin Famotidine 20 mg 07/16/22 09:00 07/16/22 20:33 Famotidine 20 Mg/2 Ml Vial IV PUSH 20 mg Q12HR BOOM Administration Fentanyl Citrate 25 mcg 07/15/22 21:59 Fentanyl Citrate Inj (*Crx) 100 Mcg/2 Ml Vial IV PUSH Q4H PRN Pain Rated 7-10 Sodium Chloride 1,000 mls @ 100 mls/hr 07/15/22 18:50 07/17/22 06:23 Normal Saline Iv IV CONT 100 mls/hr .Q10H BOOM Administration Ondansetron HCl 4 mg 07/15/22 17:30 Ondansetron Inj 4 Mg/2 Ml Vial IV PUSH Q4H PRN Nausea Radiology Results: ITS Impressions Chest/Abdomen/Pelvis CTA 07/15/22 16:28 IMPRESSION: 1. Cholelithiasis and obstructing choledocholithiasis with moderate more proximal biliary ductal dilation. 2. No pulmonary embolism or other acute cardiopulmonary disease. 3. IUD in expected position. Labs Labs: Laboratory Results - last 24 hr 07/17/22 07/17/22 05:51 05:51 WBC 7.4 RBC 3.80 L Hgb 11.8 L Hct 37.4 MCV 98.4 MCH 31.1 MCHC 31.6 L RDW 15.3 H Plt Count 230 MPV 10.5 H Immature Gran % (Auto) 0.4 Neut % (Auto) 56.1 Lymph % (Auto) 31.1 [place] % (Auto) 6.8 Eos % (Auto) 4.7 H Baso % (Auto) 0.9 Lymph # (Auto) 2.30 [place] # (Auto) 0.5 Eos # (Auto) 0.4 H Baso # (Auto) 0.1 Abs Immat Gran (auto) 0.03 Absolute Neuts (auto) 4.2 Absolute Nucleated RBC 0.0 Nucleated RBC % 0.0 Sodium 138 Potassium 3.2 L Chloride 106 Carbon Dioxide 22 Anion Gap 10 BUN < 2 L Creatinine 0.50 L Estim Creat Clear Calc 130 Estimated GFR > 60
[2022-07-17] MEDS: POTASSIUM CHLORIDE 20 MEQ TABLET PO (12:46)
--- NOTE | 2022-07-17 13:20 | WPDANESEPPF ---
Anes - Initial Pre Proc Eval Procedure: Operation Date: 07/18/22 10:30 Proposed Procedures p Endoscopic Retro Cholangiopancreatogram - Marty Barrera MD Date/Time: 07/17/22 13:20 Surgeon: Mamadou Wade MD Pre Op Diagnosis: choledocholithiasis Patient Data Age: 37 Gender: F Height: 1.55 m Weight: 88.45 kg Last Vital Signs Temp 36.3 C L 07/17/22 05:54 Pulse 64 07/17/22 08:00 Resp 18 07/17/22 08:00 BP 141/82 H 07/17/22 05:54 Pulse Ox 99 07/17/22 08:00 O2 Del Method Room Air 07/17/22 08:00 Allergies Allergy/AdvReac Type Severity Reaction Status Date / Time tramadol Allergy Unknown UNKNOWN Verified 07/18/22 09:11 Home Medications Medication Instructions Recorded Confirmed Type nitrofurantoin 100 mg PO Q12H 7 days #14 caps 12/22/21 07/15/22 Rx monohydrate/macrocrystals 100 mg capsule (Macrobid) ondansetron 4 mg disintegrating 4 mg PO Q6H PRN nausea and 12/22/21 07/15/22 Rx tablet vomiting #14 tabs pantoprazole 40 mg tablet,delayed 40 mg PO QAM #30 tabs 12/22/21 07/15/22 Rx release (Protonix) acetaminophen 500 mg tablet 500 mg PO Q6H PRN Headache 07/15/22 07/15/22 History famotidine 20 mg tablet 20 mg PO DAILY 07/15/22 07/15/22 History Laboratory Tests 07/17/22 07/17/22 05:51 05:51 WBC 7.4 K/mm3 K/mm3 (4.5-10.0) RBC 3.80 M/mm3 L M/mm3 (4.2-5.4) Hgb 11.8 g/dL L g/dL (12.0-15.0) Hct 37.4 % % (37.0-47.0) MCV 98.4 fl fl (80-100) MCH 31.1 pg pg (26-34) MCHC 31.6 g/dl L g/dl (32-36) RDW 15.3 % H % (11.5-14.5) Plt Count 230 k/mm3 k/mm3 (150-375) MPV 10.5 fl H fl (7.4-10.4) Immature Gran % (Auto) 0.4 % % (0-0.5) Neut % (Auto) 56.1 % % (45.5-73.1) Lymph % (Auto) 31.1 % % (18.3-44.2) [place] % (Auto) 6.8 % % (2.6-8.5) Eos % (Auto) 4.7 % H % (0-4.4) Baso % (Auto) 0.9 % % (0.2-1.2) Lymph # (Auto) 2.30 K/mm3 K/mm3 (0.9-3.2) [place] # (Auto) 0.5 K/mm3 K/mm3 (0.1-0.6) Eos # (Auto) 0.4 K/mm3 H K/mm3 (0-0.3) Baso # (Auto) 0.1 K/mm3 K/mm3 (0.0-0.1) Abs Immat Gran (auto) 0.03 K/mm3 K/mm3 (0.00-0.031) Absolute Neuts (auto) 4.2 K/mm3 K/mm3 (1.3-6.7) Absolute Nucleated RBC 0.0 K/mm3 K/mm3 (0.0-0.012) Nucleated RBC % 0.0 % % (0.0-0.2) Sodium 138 mmol/L mmol/L (137-145) Potassium 3.2 mmol/L L mmol/L (3.4-5.0) Chloride 106 mmol/L mmol/L (98-107) Carbon Dioxide 22 mmol/L mmol/L (22-30) Anion Gap 10 mmol/L mmol/L (8-16) BUN < 2 mg/dL L mg/dL (7-17) Creatinine 0.50 mg/dL L mg/dL (0.7-1.0) Estim Creat Clear Calc 130 ml/min ml/min Estimated GFR > 60 (59 - ) Glucose 103 mg/dL mg/dL (65-110) Calcium 8.3 mg/dL L mg/dL (8.4-10.2) Total Bilirubin 10.3 mg/dL H mg/dL (0.2-1.3) AST 83 U/L H U/L (14-36) ALT 102 U/L H U/L (6-35) Alkaline Phosphatase 446 U/L H U/L (38-126) Total Protein 7.0 g/dL g/dL (6.3-8.2) Albumin 3.6 g/dL g/dL (3.5-5.1) Patient hx anesthesia problems: none Family hx anesthesia problems: none Results Review: All pre-operative results and documents have been reviewed as part of the pre-operative evaluation. [facility] Past Medical History Medical History Choledocholithiasis Cholelithiasis Chronic GERD Obstructive jaundice Upper abdominal pain Surgical History Surgical History H/O section Family History Family History Other Lupus Mother Cancer Grandparent Heart disease Dementia Social History Social History Social History: The patient lives with her fiance an
--- NOTE | 2022-07-17 13:39 | PM.IMPN ---
Progress Note: A&P Assessment and Plan (1) Obstructive jaundice: Code(s): K83.1 - Obstruction of bile duct Status: Acute (2) Cholelithiasis: Code(s): K80.20 - Calculus of gallbladder without cholecystitis without obstruction Status: Acute (3) Hypokalemia: Code(s): E87.6 - Hypokalemia Status: Acute Assessment and Plan: Replace and recheck, magnesium within normal limits (4) Chronic GERD: Code(s): K21.9 - Gastro-esophageal reflux disease without esophagitis Status: Acute Assessment and Plan: Continue with IV Pepcid (5) Choledocholithiasis: Code(s): K80.50 - Calculus of bile duct without cholangitis or cholecystitis without obstruction Status: Acute Assessment and Plan: Clear liquid diet, appreciate GI and surgery consultation, ERCP scheduled for sunday Patient is being evaluated for possible lap marcela Subjective Date/time seen: 07/17/22 13:39 37-year-old female patient who has been complaining of epigastric discomfort and GERD for at least 10 years.? The patient stated over the last year she has had intermittent epigastric and right upper quadrant pain that radiates to her mid back.? The patient stated that she has tried different types of acid reflux reduce her and PPIs. Pt found to have CTA showed evidence of choledocholithiasis and cholelithiasis. planning ERCP today and possible lap marcela tomorrow. Pt blood pressures have been running high likely secondary to IV fluid hydration Review of Systems Review of Systems: No specific compliants Objective Data Vital Signs Vital Signs: Vital Signs - 24 hr 07/16/22 21:24 07/16/22 23:24 07/17/22 05:54 Temperature 36.3 C L 36.3 C L Pulse Rate 61 64 Respiratory Rate 14 18 Blood Pressure 181/92 H 152/83 H 141/82 H Pulse Oximetry 98 99 Oxygen Delivery 07/17/22 08:00 Temperature Pulse Rate 64 Respiratory Rate 18 Blood Pressure Pulse Oximetry 99 Oxygen Delivery Room Air Intake/Output Intake/Output: Intake & Output 07/14/22 07/15/22 07/16/22 07/17/22 23:59 23:59 23:59 23:59 Intake Total 1000 3842 2180 Output Total 1050 1800 Balance 1000 2792 380 Meds/Results Medications: Active Medications Generic Name Dose Route Start Last Admin Trade Name Freq PRN Reason Stop Dose Admin Famotidine 20 mg 07/16/22 09:00 07/16/22 20:33 Famotidine 20 Mg/2 Ml Vial IV PUSH 20 mg Q12HR BOOM Administration Fentanyl Citrate 25 mcg 07/15/22 21:59 Fentanyl Citrate Inj (*Crx) 100 Mcg/2 Ml Vial IV PUSH Q4H PRN Pain Rated 7-10 Sodium Chloride 1,000 mls @ 100 mls/hr 07/15/22 18:50 07/17/22 06:23 Normal Saline Iv IV CONT 100 mls/hr .Q10H BOOM Administration Lactated Ringer's 1,000 mls @ 150 mls/hr 07/17/22 13:25 Lr - Lactated Ringers Iv IV CONT .Q6H40M BOOM Ondansetron HCl 4 mg 07/15/22 17:30 Ondansetron Inj 4 Mg/2 Ml Vial IV PUSH Q4H PRN Nausea Radiology Results: ITS Impressions Chest/Abdomen/Pelvis CTA 07/15/22 16:28 IMPRESSION: 1. Cholelithiasis and obstructing choledocholithiasis with moderate more proximal biliary ductal dilation. 2. No pulmonary embolism or other acute cardiopulmonary disease. 3. IUD in expected position. Labs Labs: Laboratory Results - last 24 hr 07/17/22 07/17/22 05:51 05:51 WBC 7.4 RBC 3.80 L Hgb 11.8 L Hct 37.4 MCV 98.4 MCH 31.1 MCHC 31.6 L RDW 15.3 H Plt Count 230 MPV 10.5 H Immature Gran % (Auto) 0.4 Neut % (Auto) 56.1 Lymph % (Auto) 31.1 [place] % (Auto) 6.8 Eos % (Auto) 4.7 H Baso % (Auto) 0.9 Lymph # (Auto) 2.30 [place] # (Auto) 0.5 Eos # (Auto) 0.4 H Baso # (Auto) 0.1 Abs Immat Gran (auto) 0.03 Absolute Neuts (auto) 4.2 Absolute Nucleated RBC 0.0 Nucleated RBC % 0.0 Sodium 138 Potassium 3.2 L Chloride 106 Carbon Dioxide 22 Anion Gap 10 BUN < 2 L Creatinine 0.50
--- NOTE | 2022-07-17 13:55 | WPDGIPROGNO ---
Progress Note: A&P Assessment and Plan (1) Obstructive jaundice: Code(s): K83.1 - Obstruction of bile duct Status: Acute Assessment and Plan: ercp tomorrow, may need spyglass based on findings she is comfortable now (2) Choledocholithiasis: Code(s): K80.50 - Calculus of bile duct without cholangitis or cholecystitis without obstruction Status: Acute Assessment and Plan: ercp in the morning (3) Cholelithiasis: Code(s): K80.20 - Calculus of gallbladder without cholecystitis without obstruction Status: Acute Assessment and Plan: surgery on board, will need lap marcela after ercp based on findings (4) Upper abdominal pain: Code(s): R10.10 - Upper abdominal pain, unspecified Status: Acute Assessment and Plan: only mild discomfort Subjective Date/time seen: 07/17/22 13:55 Interval history: no major changes, still dark urine Review of Systems Review of Systems: All systems reviewed & are unremarkable except as noted in HPI and below Exam Const: General: comfortable; No acute distress Orientation/consciousness: patient oriented x3 HENMT: Face/Nose/Sinus: Normal nares present Eyes: Other: icteric sclerae Neck: Neck: supple Resp: Effort & Inspection: normal respiratory effort Cardio: Rate: regular rate GI: Inspection: non-distended GI Palp: Yes Soft to palpation, Yes Tenderness to palpation present (GI) (mild TTP in RUQ), No Guarding due to palpation present (GI) and No Rebound tenderness present Auscultation: normal bowel sounds Skin: General skin exam: jaundice Neuro: Speech: normal speech Motor exam (neuro): 5/5 motor strength present throughout Extrem: General: normal to inspection Psych: Affect: normal affect Objective Data Vital Signs Vital Signs: Vital Signs - 24 hr 07/16/22 21:24 07/16/22 23:24 07/17/22 05:54 Temperature 97.3 F L 97.4 F L Pulse Rate 61 64 Respiratory Rate 14 18 Blood Pressure 181/92 H 152/83 H 141/82 H Pulse Oximetry 98 99 Oxygen Delivery 07/17/22 08:00 Temperature Pulse Rate 64 Respiratory Rate 18 Blood Pressure Pulse Oximetry 99 Oxygen Delivery Room Air Intake/Output Intake/Output: Intake & Output 07/14/22 07/15/22 07/16/22 07/17/22 23:59 23:59 23:59 23:59 Intake Total 1000 3842 2180 Output Total 1050 1800 Balance 1000 2792 380 Meds/Results Medications: Active Medications Generic Name Dose Route Start Last Admin Trade Name Freq PRN Reason Stop Dose Admin Famotidine 20 mg 07/16/22 09:00 07/16/22 20:33 Famotidine 20 Mg/2 Ml Vial IV PUSH 20 mg Q12HR BOOM Administration Fentanyl Citrate 25 mcg 07/15/22 21:59 Fentanyl Citrate Inj (*Crx) 100 Mcg/2 Ml Vial IV PUSH Q4H PRN Pain Rated 7-10 Sodium Chloride 1,000 mls @ 100 mls/hr 07/15/22 18:50 07/17/22 06:23 Normal Saline Iv IV CONT 100 mls/hr .Q10H BOOM Administration Ondansetron HCl 4 mg 07/15/22 17:30 Ondansetron Inj 4 Mg/2 Ml Vial IV PUSH Q4H PRN Nausea Radiology Results: ITS Impressions Chest/Abdomen/Pelvis CTA 07/15/22 16:28 IMPRESSION: 1. Cholelithiasis and obstructing choledocholithiasis with moderate more proximal biliary ductal dilation. 2. No pulmonary embolism or other acute cardiopulmonary disease. 3. IUD in expected position. Labs Labs: Laboratory Results - last 24 hr 07/17/22 07/17/22 05:51 05:51 WBC 7.4 RBC 3.80 L Hgb 11.8 L Hct 37.4 MCV 98.4 MCH 31.1 MCHC 31.6 L RDW 15.3 H Plt Count 230 MPV 10.5 H Immature Gran % (Auto) 0.4 Neut % (Auto) 56.1 Lymph % (Auto) 31.1 [place] % (Auto) 6.8 Eos % (Auto) 4.7 H Baso % (Auto) 0.9 Lymph # (Auto) 2.30 [place] # (Auto) 0.5 Eos # (Auto) 0.4 H Baso # (Auto) 0.1 Abs Immat Gran (auto) 0.03 Absolute Neuts (auto) 4.2 Absolute Nucleated RBC 0.0 Nucleated RBC % 0.0 Sodium 138 Potassium 3.2 L Chloride 106 Carbon
--- NOTE | 2022-07-17 14:48 | PC.NURSE ---
BP 1420 187/103, repeat at 1445 180/103. Patient has no c/o headache, dizziness, chest pain, SOB, palpitations or pain. Dr. Villalta made aware, new order received. Will cont to monitor. Abimbola Montanez RN
[2022-07-17] MEDS: hydrALAZINE HCL 25 MG TABLET PO ×2 (17:30→20:04)
[2022-07-17] MEDS: hydrALAZINE HCL 20 MG/ML VIAL 5 MG IV PUSH (22:27)
[2022-07-18] VITALS (13 sets, daily range): BP systolic 103–152; BP diastolic 55–97; PULSE 60–88; RESP 14–21; TEMP 35.7–36.7; O2SAT 95–100
[2022-07-18 06:02] LABS: Basophils Absolute Auto 0.1 K/mm3 (0.0-0.1); Basophils Percent Auto 0.8 % (0.2-1.2); Eosinophils Absolute Auto 0.3 K/mm3 (0-0.3); Eosinophils Percent Auto 3.9 % (0-4.4); Immature Granulocyte Absolute 0.03 K/mm3 (0.00-0.031); Immature Granulocyte Percent A 0.4 % (0-0.5); Lymphocytes Absolute Auto 2.31 K/mm3 (0.9-3.2); Lymphocytes Percent Auto 27.2 % (18.3-44.2); Mean Corpuscular HGB Conc 33.3 g/dl (32-36); Mean Corpuscular Hemoglobin 30.6 pg (26-34); Mean Corpuscular Volume 91.8 fl (80-100); Mean Platelet Volume 9.9 fl (7.4-10.4); Monocytes Absolute Auto 0.6 K/mm3 (0.1-0.6); Monocytes Percent Auto 7.1 % (2.6-8.5); Neutrophils Absolute Auto 5.2 K/mm3 (1.3-6.7); Neutrophils Percent Auto 60.6 % (45.5-73.1); Platelet Count Result 343 k/mm3 (150-375); Red Blood Count 4.25 M/mm3 (4.2-5.4); Red Cell Distribution Width 15.4 % (11.5-14.5); White Blood Count 8.5 K/mm3 (4.5-10.0)
[2022-07-18 06:11] LABS: Alanine Aminotransferase 113 U/L (6-35); Albumin Level 3.9 g/dL (3.5-5.1); Alkaline Phosphatase 495 U/L (38-126); Anion Gap 9 mmol/L (8-16); Aspartate Amino Transferase 91 U/L (14-36); Bilirubin,Total 10.9 mg/dL (0.2-1.3); Blood Urea Nitrogen 2 mg/dL (7-17); Carbon Dioxide 26 mmol/L (22-30); Chloride 103 mmol/L (98-107); Estimated CRCL calculation 130 ml/min; Estimated Glomerular Filt Rate > 60; Glucose 104 mg/dL (65-110); Potassium 3.2 mmol/L (3.4-5.0); Sodium 138 mmol/L (137-145)
[2022-07-18] MEDS: FAMOTIDINE 20 MG/2 ML VIAL IV PUSH ×2 (08:10→19:43)
[2022-07-18] MEDS: hydrALAZINE HCL 25 MG TABLET PO ×2 (08:11→19:43)
[2022-07-18] MEDS: hydroCHLOROthiazide 25 MG TABLET PO (08:11)
[2022-07-18] MEDS: LACTATED RINGERS 1,000 ML 150 ML IV CONT (09:15)
[2022-07-18] MEDS: INDOMETHACIN 50 MG SUPP.RECT RECTAL (10:49)
--- NOTE | 2022-07-18 13:06 | SUR.PHASEII ---
1253 skin jaundiced, warm and dry. Warm blanket applied.
--- NOTE | 2022-07-18 14:48 | PM.IMPN ---
Progress Note: A&P Assessment and Plan (1) Obstructive jaundice: Code(s): K83.1 - Obstruction of bile duct Status: Acute Assessment and Plan: watch cmp pt will need lap marcela (2) Cholelithiasis: Code(s): K80.20 - Calculus of gallbladder without cholecystitis without obstruction Status: Acute Assessment and Plan: sp ercp with findng of large obstructing stone (3) Hypokalemia: Code(s): E87.6 - Hypokalemia Status: Acute Assessment and Plan: Replace and recheck, magnesium within normal limits (4) Chronic GERD: Code(s): K21.9 - Gastro-esophageal reflux disease without esophagitis Status: Acute Assessment and Plan: Continue with IV Pepcid changed to oral (5) Choledocholithiasis: Code(s): K80.50 - Calculus of bile duct without cholangitis or cholecystitis without obstruction Status: Acute Assessment and Plan: Appreciate GI and surgery consultation, pt had ERCP Patient will benefit from lap marcela (6) HTN (hypertension): Code(s): I10 - Essential (primary) hypertension Status: Acute Assessment and Plan: new diagnosis htcz and hydralazine oral have been started bp much better today at 133/77 Subjective Date/time seen: 07/18/22 14:48 Interval history: 37-year-old female with abdominal pain found to have choledocholithiasis and cholelithiasis. Pt had ercp showing large obstructing stone pt will benefit from lap marcela surgery team aware Unfortunately patients blood pressure have been running very high in the hospital, and blood pressure medications have been started for new diagnosis of htn Review of Systems Review of Systems: No specific complaints apart from abdominal pains All systems reviewed & are unremarkable except as noted in HPI and below Exam Narrative: General: No acute distress, alert young female HEENT: Atraumatic, normocephalic, mucous membranes moist CV: Regular rate and rhythm, S1, S2 Lungs: Clear to auscultation bilaterally, no rales or crackles noted, no wheezes, good air entry Abdomen: Soft, nontender, nondistended Extremities: Normal to inspection Skin: No rashes noted, no lesions or wounds seen Psych: Euthymic, normal affect Objective Data Vital Signs Vital Signs: Vital Signs - 24 hr 07/17/22 17:31 07/17/22 18:58 07/17/22 18:58 Temperature Pulse Rate Respiratory Rate Blood Pressure 174/95 H 171/98 H 174/104 H Pulse Oximetry Oxygen Delivery Oxygen Flow Rate 07/17/22 22:03 07/17/22 23:22 07/18/22 06:11 Temperature 36.5 C 36.2 C L 36.4 C L Pulse Rate 75 70 78 Respiratory Rate 16 14 14 Blood Pressure 165/93 H 162/92 H 133/76 Pulse Oximetry 100 100 98 Oxygen Delivery Oxygen Flow Rate 07/18/22 07:52 07/18/22 09:12 07/18/22 12:43 Temperature 36.7 C 36.4 C L Pulse Rate 86 88 Respiratory Rate 20 20 Blood Pressure 142/85 H 112/55 L Pulse Oximetry 98 100 100 Oxygen Delivery Room Air Room Air Simple Face Mask Oxygen Flow Rate 6 07/18/22 12:53 07/18/22 13:03 07/18/22 13:13 Temperature Pulse Rate 66 66 65 Respiratory Rate 20 20 21 H Blood Pressure 108/63 111/55 L 103/60 Pulse Oximetry 100 100 100 Oxygen Delivery Simple Face Mask Simple Face Mask Room Air Oxygen Flow Rate 6 6 07/18/22 13:23 07/18/22 13:33 07/18/22 13:39 Temperature Pulse Rate 66 62 60 Respiratory Rate 18 16 16 Blood Pressure 108/62 106/62 107/61 Pulse Oximetry 95 95 95 Oxygen Delivery Room Air Room Air Room Air Oxygen Flow Rate 07/18/22 14:00 Temperature 35.7 C L Pulse Rate 64 Respiratory Rate 16 Blood Pressure 133/77 Pulse Oximetry 100 Oxygen Delivery Oxygen Flow Rate Intake/Output Intake/Output: Intake & Output 07/15/22 07/16/22 07/17/22 07/18/22 23:59 23:59 23:59 23:59 Intake Total 1000 3842 3740 50 Output Total 1050 2700 0 Balance 1000 2792 1040 50 Meds/Results Medicati
--- NOTE | 2022-07-18 15:47 | PM.PNGS ---
Progress Note: A&P Assessment and Plan (1) Cholelithiasis: Code(s): K80.20 - Calculus of gallbladder without cholecystitis without obstruction Status: Acute Assessment and Plan: Patient is s/p ERCP. Will plan for laparoscopic cholecystectomy, possible open tomorrow. I discussed the procedure, risks, benefits, and alternatives. Questions answered. (2) Choledocholithiasis: Code(s): K80.50 - Calculus of bile duct without cholangitis or cholecystitis without obstruction Status: Acute Subjective Subjective Date/Time Seen: 07/18/22 15:47 Interval history: Patient underwent ERCP today. She says she's a little groggy but otherwise doing well. Exam GI: Inspection: non-distended GI Palp: Yes Soft to palpation, No Tenderness to palpation present (GI) and No Guarding due to palpation present (GI) Objective Data Vital Signs Vital Signs: Vital Signs - 24 hr 07/17/22 17:31 07/17/22 18:58 07/17/22 18:58 Temperature Pulse Rate Respiratory Rate Blood Pressure 174/95 H 171/98 H 174/104 H Pulse Oximetry Oxygen Delivery Oxygen Flow Rate 07/17/22 22:03 07/17/22 23:22 07/18/22 06:11 Temperature 36.5 C 36.2 C L 36.4 C L Pulse Rate 75 70 78 Respiratory Rate 16 14 14 Blood Pressure 165/93 H 162/92 H 133/76 Pulse Oximetry 100 100 98 Oxygen Delivery Oxygen Flow Rate 07/18/22 07:52 07/18/22 09:12 07/18/22 12:43 Temperature 36.7 C 36.4 C L Pulse Rate 86 88 Respiratory Rate 20 20 Blood Pressure 142/85 H 112/55 L Pulse Oximetry 98 100 100 Oxygen Delivery Room Air Room Air Simple Face Mask Oxygen Flow Rate 6 07/18/22 12:53 07/18/22 13:03 07/18/22 13:13 Temperature Pulse Rate 66 66 65 Respiratory Rate 20 20 21 H Blood Pressure 108/63 111/55 L 103/60 Pulse Oximetry 100 100 100 Oxygen Delivery Simple Face Mask Simple Face Mask Room Air Oxygen Flow Rate 6 6 07/18/22 13:23 07/18/22 13:33 07/18/22 13:39 Temperature Pulse Rate 66 62 60 Respiratory Rate 18 16 16 Blood Pressure 108/62 106/62 107/61 Pulse Oximetry 95 95 95 Oxygen Delivery Room Air Room Air Room Air Oxygen Flow Rate 07/18/22 14:00 Temperature 35.7 C L Pulse Rate 64 Respiratory Rate 16 Blood Pressure 133/77 Pulse Oximetry 100 Oxygen Delivery Oxygen Flow Rate Intake/Output Intake/Output: Intake & Output 07/15/22 07/16/22 07/17/22 07/18/22 23:59 23:59 23:59 23:59 Intake Total 1000 3842 3740 50 Output Total 1050 2700 0 Balance 1000 2792 1040 50 Meds/Results Medications: Active Medications Generic Name Dose Route Start Last Admin Trade Name Freq PRN Reason Stop Dose Admin Famotidine 20 mg 07/16/22 09:00 07/18/22 08:10 Famotidine 20 Mg/2 Ml Vial IV PUSH 20 mg Q12HR BOOM Administration Fentanyl Citrate 25 mcg 07/15/22 21:59 Fentanyl Citrate Inj (*Crx) 100 Mcg/2 Ml Vial IV PUSH Q4H PRN Pain Rated 7-10 Hydralazine HCl 5 mg 07/17/22 18:59 07/17/22 22:27 Hydralazine Hcl 20 Mg/Ml Vial IV PUSH 5 mg Q8H PRN Administration Blood Pressure - High Hydralazine HCl 25 mg 07/17/22 21:00 07/18/22 08:11 Hydralazine Hcl 25 Mg Tablet PO 25 mg Q12HR BOOM Administration Hydrochlorothiazide 25 mg 07/18/22 09:00 07/18/22 08:11 Hydrochlorothiazide 25 Mg Tablet PO 25 mg QAM BOOM Administration Lactated Ringer's 1,000 mls @ 150 mls/hr 07/18/22 14:55 Lr - Lactated Ringers Iv IV CONT .Q6H40M BOOM Cefazolin Sodium 2 gm in 50 mls @ 100 mls/hr 07/18/22 15:28 Ancef 2 Gm/D5w 50 Ml IVPB 07/18/22 15:57 ONCE ONE Ondansetron HCl 4 mg 07/15/22 17:30 Ondansetron Inj 4 Mg/2 Ml Vial IV PUSH Q4H PRN Nausea Radiology Results: ITS Impressions Chest/Abdomen/Pelvis CTA 07/15/22 16:28 IMPRESSION: 1. Cholelithiasis and obstructing choledocholithiasis with moderate more proximal biliary ductal dilation. 2. No pulmonary embolism or other acute cardiopulmonary disease. 3. IUD in ex
[2022-07-18] MEDS: ONDANSETRON INJ 4 MG/2 ML VIAL IV PUSH (19:43)
[2022-07-19] VITALS (13 sets, daily range): BP systolic 129–171; BP diastolic 73–99; PULSE 71–91; RESP 16–24; TEMP 35.9–37; O2SAT 93–100
[2022-07-19 06:08] LABS: Basophils Absolute Auto 0.1 K/mm3 (0.0-0.1); Basophils Percent Auto 0.5 % (0.2-1.2); Eosinophils Absolute Auto 0.1 K/mm3 (0-0.3); Eosinophils Percent Auto 0.5 % (0-4.4); Hematocrit 38.6 % (37.0-47.0); Hemoglobin 12.7 g/dL (12.0-15.0); Immature Granulocyte Absolute 0.03 K/mm3 (0.00-0.031); Immature Granulocyte Percent A 0.3 % (0-0.5); Lymphocytes Absolute Auto 2.48 K/mm3 (0.9-3.2); Lymphocytes Percent Auto 24.4 % (18.3-44.2); Mean Corpuscular HGB Conc 32.9 g/dl (32-36); Mean Corpuscular Hemoglobin 30.5 pg (26-34); Mean Corpuscular Volume 92.6 fl (80-100); Monocytes Absolute Auto 0.7 K/mm3 (0.1-0.6); Monocytes Percent Auto 6.5 % (2.6-8.5); Neutrophils Absolute Auto 6.9 K/mm3 (1.3-6.7); Neutrophils Percent Auto 67.8 % (45.5-73.1); Platelet Count Result 350 k/mm3 (150-375); Red Blood Count 4.17 M/mm3 (4.2-5.4); Red Cell Distribution Width 15.6 % (11.5-14.5); White Blood Count 10.2 K/mm3 (4.5-10.0)
[2022-07-19 06:20] LABS: Alanine Aminotransferase 105 U/L (6-35); Alkaline Phosphatase 460 U/L (38-126); Anion Gap 10 mmol/L (8-16); Aspartate Amino Transferase 83 U/L (14-36); Bilirubin,Total 8.8 mg/dL (0.2-1.3); Blood Urea Nitrogen 7 mg/dL (7-17); Carbon Dioxide 27 mmol/L (22-30); Chloride 98 mmol/L (98-107); Estimated CRCL calculation 96 ml/min; Estimated Glomerular Filt Rate > 60; Glucose 105 mg/dL (65-110); Potassium 3.2 mmol/L (3.4-5.0); Sodium 135 mmol/L (137-145)
--- NOTE | 2022-07-19 07:40 | PM.IMPN ---
Progress Note: A&P Assessment and Plan (1) Obstructive jaundice: Code(s): K83.1 - Obstruction of bile duct Status: Acute Assessment and Plan: watch cmp pt will need lap marcela (2) Cholelithiasis: Code(s): K80.20 - Calculus of gallbladder without cholecystitis without obstruction Status: Acute Assessment and Plan: sp ercp with findng of large obstructing stone (3) Hypokalemia: Code(s): E87.6 - Hypokalemia Status: Acute Assessment and Plan: Replace and recheck, magnesium within normal limits (4) Chronic GERD: Code(s): K21.9 - Gastro-esophageal reflux disease without esophagitis Status: Acute Assessment and Plan: Continue with IV Pepcid changed to oral (5) Choledocholithiasis: Code(s): K80.50 - Calculus of bile duct without cholangitis or cholecystitis without obstruction Status: Acute Assessment and Plan: Appreciate GI and surgery consultation, pt had ERCP Patient will benefit from lap marcela (6) HTN (hypertension): Code(s): I10 - Essential (primary) hypertension Status: Acute Assessment and Plan: new diagnosis htcz and hydralazine oral have been started bp much better today at 133/77 Subjective Date/time seen: 07/19/22 07:40 No complaints Exam Narrative: General: No acute distress, alert young female HEENT: Atraumatic, normocephalic, mucous membranes moist CV: Regular rate and rhythm, S1, S2 Lungs: Clear to auscultation bilaterally, no rales or crackles noted, no wheezes, good air entry Abdomen: Soft, nontender, nondistended Extremities: Normal to inspection Skin: No rashes noted, no lesions or wounds seen Psych: Euthymic, normal affect Objective Data Vital Signs Vital Signs: Vital Signs - 24 hr 07/18/22 07:52 07/18/22 09:12 07/18/22 12:43 Temperature 98.0 F 97.5 F L Pulse Rate 86 88 Respiratory Rate 20 20 Blood Pressure 142/85 H 112/55 L Pulse Oximetry 98 100 100 Oxygen Delivery Room Air Room Air Simple Face Mask Oxygen Flow Rate 6 07/18/22 12:53 07/18/22 13:03 07/18/22 13:13 Temperature Pulse Rate 66 66 65 Respiratory Rate 20 20 21 H Blood Pressure 108/63 111/55 L 103/60 Pulse Oximetry 100 100 100 Oxygen Delivery Simple Face Mask Simple Face Mask Room Air Oxygen Flow Rate 6 6 07/18/22 13:23 07/18/22 13:33 07/18/22 13:39 Temperature Pulse Rate 66 62 60 Respiratory Rate 18 16 16 Blood Pressure 108/62 106/62 107/61 Pulse Oximetry 95 95 95 Oxygen Delivery Room Air Room Air Room Air Oxygen Flow Rate 07/18/22 14:00 07/18/22 20:00 07/18/22 21:57 Temperature 96.3 F L 97.3 F L Pulse Rate 64 64 77 Respiratory Rate 16 16 14 Blood Pressure 133/77 152/97 H Pulse Oximetry 100 100 100 Oxygen Delivery Room Air Oxygen Flow Rate Intake/Output Intake/Output: Intake & Output 07/16/22 07/17/22 07/18/22 07/19/22 23:59 23:59 23:59 23:59 Intake Total 3842 3740 250 500 Output Total 1050 2700 0 800 Balance 2792 1040 250 -300 Meds/Results Medications: Active Medications Generic Name Dose Route Start Last Admin Trade Name Freq PRN Reason Stop Dose Admin Famotidine 20 mg 07/16/22 09:00 07/18/22 19:43 Famotidine 20 Mg/2 Ml Vial IV PUSH 20 mg Q12HR BOOM Administration Fentanyl Citrate 25 mcg 07/15/22 21:59 Fentanyl Citrate Inj (*Crx) 100 Mcg/2 Ml Vial IV PUSH Q4H PRN Pain Rated 7-10 Hydralazine HCl 5 mg 07/17/22 18:59 07/17/22 22:27 Hydralazine Hcl 20 Mg/Ml Vial IV PUSH 5 mg Q8H PRN Administration Blood Pressure - High Hydralazine HCl 25 mg 07/17/22 21:00 07/18/22 19:43 Hydralazine Hcl 25 Mg Tablet PO 25 mg Q12HR BOOM Administration Hydrochlorothiazide 25 mg 07/18/22 09:00 07/18/22 08:11 Hydrochlorothiazide 25 Mg Tablet PO 25 mg QAM BOOM Administration Ondansetron HCl 4 mg 07/15/22 17:30 07/18/22 19:43 Ondansetron Inj 4 Mg/2 Ml Vial I
[2022-07-19] MEDS: hydrALAZINE HCL 25 MG TABLET PO ×2 (08:42→20:23)
[2022-07-19] MEDS: FAMOTIDINE 20 MG/2 ML VIAL IV PUSH ×2 (08:43→20:23)
--- NOTE | 2022-07-19 09:53 | P.PNAN_ITS ---
Anes - Prog Note Post-Op Date/Time: 07/19/22 09:53 Cardiovascular status: normal Respiratory status: normal Airway patency: baseline Mental status: baseline Post-Op hydration status: normal Vital Signs: Last Vital Signs Temp 36.3 C L 07/19/22 08:03 Pulse 71 07/19/22 08:03 Resp 16 07/19/22 08:03 BP 145/89 H 07/19/22 08:03 Pulse Ox 100 07/19/22 08:03 O2 Del Method Room Air 07/18/22 20:00 O2 Flow Rate 6 07/18/22 13:03 Pain Score (VAS): 1 I/O: Intake & Output 07/18/22 07/19/22 07/19/22 23:59 07:59 15:59 Intake Total 200 500 Output Total 800 Balance 200 -300 Laboratory Tests 07/19/22 05:35 07/19/22 05:35 07/19/22 07/19/22 05:35 05:35 WBC 10.2 H RBC 4.17 L Hgb 12.7 Hct 38.6 MCV 92.6 MCH 30.5 MCHC 32.9 RDW 15.6 H Plt Count 350 MPV 10.0 Immature Gran % (Auto) 0.3 Neut % (Auto) 67.8 Lymph % (Auto) 24.4 [place] % (Auto) 6.5 Eos % (Auto) 0.5 Baso % (Auto) 0.5 Lymph # (Auto) 2.48 [place] # (Auto) 0.7 H Eos # (Auto) 0.1 Baso # (Auto) 0.1 Abs Immat Gran (auto) 0.03 Absolute Neuts (auto) 6.9 H Absolute Nucleated RBC 0.0 Nucleated RBC % 0.0 Sodium 135 L Potassium 3.2 L Chloride 98 Carbon Dioxide 27 Anion Gap 10 BUN 7 D Creatinine 0.70 Estim Creat Clear Calc 96 Estimated GFR > 60 Glucose 105 Calcium 9.0 Total Bilirubin 8.8 H AST 83 H ALT 105 H Alkaline Phosphatase 460 H Total Protein 7.0 Albumin 4.0 Post-procedural complaints: none Patient Feedback: Patient satisfied with anesthetic care.
--- NOTE | 2022-07-19 11:54 | WPDGIPROGNO ---
Progress Note: A&P Assessment and Plan (1) Choledocholithiasis: Code(s): K80.50 - Calculus of bile duct without cholangitis or cholecystitis without obstruction Status: Acute Assessment and Plan: treated with ercp, spyglass and EHL large stone finally able to remove lap marcela today (2) Obstructive jaundice: Code(s): K83.1 - Obstruction of bile duct Status: Acute Assessment and Plan: trending down will continue to monitor (3) Upper abdominal pain: Code(s): R10.10 - Upper abdominal pain, unspecified Status: Acute Assessment and Plan: denies any today (4) Cholelithiasis: Code(s): K80.20 - Calculus of gallbladder without cholecystitis without obstruction Status: Acute Subjective Date/time seen: 07/19/22 11:54 Interval history: ercp yesterday with impacted stone, treated with spyglass and EHL, finally able to removed. 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 Review of Systems Review of Systems: All systems reviewed & are unremarkable except as noted in HPI and below Exam Const: General: comfortable; No acute distress Orientation/consciousness: patient oriented x3 HENMT: Face/Nose/Sinus: Normal nares present Eyes: Other: icteric sclerae Neck: Neck: supple Resp: Effort & Inspection: normal respiratory effort Cardio: Rate: regular rate GI: Inspection: non-distended GI Palp: Yes Soft to palpation, Yes Tenderness to palpation present (GI) (mild TTP in RUQ), No Guarding due to palpation present (GI) and No Rebound tenderness present Auscultation: normal bowel sounds Skin: General skin exam: jaundice Neuro: Speech: normal speech Motor exam (neuro): 5/5 motor strength present throughout Extrem: General: normal to inspection Psych: Affect: normal affect Objective Data Vital Signs Vital Signs: Vital Signs - 24 hr 07/18/22 12:43 07/18/22 12:53 07/18/22 13:03 Temperature 97.5 F L Pulse Rate 88 66 66 Respiratory Rate 20 20 20 Blood Pressure 112/55 L 108/63 111/55 L Pulse Oximetry 100 100 100 Oxygen Delivery Simple Face Mask Simple Face Mask Simple Face Mask Oxygen Flow Rate 6 6 6 07/18/22 13:13 07/18/22 13:23 07/18/22 13:33 Temperature Pulse Rate 65 66 62 Respiratory Rate 21 H 18 16 Blood Pressure 103/60 108/62 106/62 Pulse Oximetry 100 95 95 Oxygen Delivery Room Air Room Air Room Air Oxygen Flow Rate 07/18/22 13:39 07/18/22 14:00 07/18/22 20:00 Temperature 96.3 F L Pulse Rate 60 64 64 Respiratory Rate 16 16 16 Blood Pressure 107/61 133/77 Pulse Oximetry 95 100 100 Oxygen Delivery Room Air Room Air Oxygen Flow Rate 07/18/22 21:57 07/19/22 08:03 Temperature 97.3 F L 97.4 F L Pulse Rate 77 71 Respiratory Rate 14 16 Blood Pressure 152/97 H 145/89 H Pulse Oximetry 100 100 Oxygen Delivery Oxygen Flow Rate Intake/Output Intake/Output: Intake & Output 07/16/22 07/17/22 07/18/22 07/19/22 23:59 23:59 23:59 23:59 Intake Total 3842 3740 250 500 Output Total 1050 2700 0 800 Balance 2792 1040 250 -300 Meds/Results Medications: Active Medications Generic Name Dose Route Start Last Admin Trade Name Freq PRN Reason Stop Dose Admin Famotidine 20 mg 07/16/22 09:00 07/19/22 08:43 Famotidine 20 Mg/2 Ml Vial IV PUSH 20 mg Q12HR BOOM Administration Fentanyl Citrate 25 mcg 07/15/22 21:59 Fentanyl Citrate Inj (*Crx) 100 Mcg/2 Ml Vial IV PUSH Q4H PRN Pain Rated 7-10 Fentanyl Citrate 25 mcg 07/19/22 09:02 Fentanyl Citrate Inj (*Crx) 100 Mcg/2 Ml Vial IV PUSH Q2M PRN Pain Hydralazine HCl 5 mg 07/17/22 18:59 07/17/22 22:27 Hydralazine Hcl 20 Mg/Ml Vial IV PUSH 5 mg Q8H PRN Administration Blood Pressure - High Hydralazine HCl 25 mg 07/17/22 21:00 07/19/22 08:42 Hydralazine Hcl 25 Mg Tablet PO 25 mg Q12HR BOOM Administration Hydrochlorothiazide 25 mg 07/18/22 09:00 07/19/22 08:44 Hydrochlorothiazide 25 Mg
--- NOTE | 2022-07-19 14:00 | P.PNAN_ITS ---
Anes - Eval Final PreProcedure Day of Procedure 07/19/22 14:00 Patient weight: obese Heart: regular rate and rhythm Lungs: clear to auscultation Airway: Mallampati scale class II Neurological: alert and oriented Last oral intake: >/= 8 hours ASA classification: III Emergent: no Anesthetic plan: proceed Anesthesia type and monitoring: general ETT and standard monitoring Results Review: All pre-operative results and documents have been reviewed as part of the pre- operative evaluation. Informed Consent: The patient's anesthetic plan and its attendant risks and benefits were discussed with the patient/family/POA. Questions were solicited and answers provided to the satisfaction of the patient/family/POA.
--- NOTE | 2022-07-19 14:10 | PC.NURSE ---
On 07/19/22, the student, Sergio Godoy, provided care and completed [facility] documentation on this patient. I have reviewed the student's documentation and agree with the findings.
--- NOTE | 2022-07-19 14:35 | WPDHPUPDATE1 ---
History and Physical Update Update Date/Time: 07/19/22 14:35 History and Physical has been reviewed, including an updated exam of the patient. There are NO changes in the patient's condition. Risks, benefits, and alternatives have been discussed and questions answered. Patient agrees to proceed with procedure.
[2022-07-19] MEDS: ceFAZolin 2 GM/D5W 50 ML 2 GM/50 ML BAG IVPB ×2 (14:44→23:14)
[2022-07-19] MEDS: BUPIVACAINE/EPINEPHRINE 0.5% 50 ML VIAL 30 ML INFILTRATE (16:14)
[2022-07-19] MEDS: LACTATED RINGERS 1,000 ML 30 ML IV CONT ×2 (16:25)
--- NOTE | 2022-07-19 16:26 | W.PM.PROC2 ---
Procedure Note - Detailed Date of Procedure 07/19/22 Pre-op Diagnosis choledocholithiasis, cholelithiasis, hyperbilirubinemia Post-op Diagnosis Same Procedure Performed Laparoscopic Cholecystectomy with cholangiogram Surgeon Eddie Moreno, DO Anesthesia General and Local (0.5% bupivacaine) Indications This is a 37-year-old woman who presented to the emergency department with upper abdominal pain and jaundice. She was found to have evidence of choledocholithiasis and elevated liver enzymes. She was admitted for further treatment and underwent ERCP yesterday. A large stone was broken up and removed. Her bilirubin did start trending down today therefore decision was made to proceed with laparoscopic cholecystectomy, possible open. Findings Laparoscopic cholecystectomy with cholangiogram was performed. The patient's gallbladder was slightly contracted and contained multiple large gallstones. The neck of the gallbladder and cystic duct appeared very dilated and indurated which made identifying the anatomy very difficult initially. I was able to create a window around the body of the gallbladder between the liver bed and gallbladder and then traced this down to the neck of the gallbladder. I then was able to identify the cystic artery and ligate this. I chose to perform an intraoperative cholangiogram to help better identify the anatomy and determine how long the remaining cystic duct was. Intraoperative cholangiogram was obtained with Omnipaque contrast and the images were sent to Radiology for interpretation. Due to how thick the distal neck of the gallbladder and cystic duct were, I chose to transect the cystic duct using a 45 mm blue load stapler. The gallbladder was then removed and sent to the lab for pathology. Description of Procedure Procedure as well as risks, benefits, and alternatives were discussed with patient. Written consent was obtained and placed in chart prior to procedure. The patient was brought back to surgical suite. Patient was placed in supine position on operating table. Time-out was done to confirm patient and procedure. Patient was then intubated by the anesthesia department. Abdomen was prepped and draped in sterile fashion using chlorhexidine prep. 0.5% bupivacaine with epinephrine was infiltrated at each site of incision. A 5 millimeter incision was made near the umbilicus, and a 5 millimeter Optiview trocar was advanced through the abdominal layers under direct visualization. Once inside the abdominal cavity, carbon dioxide was insufflated to create a pneumoperitoneum. The camera was inserted and the abdomen was inspected. No immediate abnormalities were identified. The patient was placed in reverse Trendelenburg position and rotated slightly to the left. An 11 millimeter incision was made in the subxiphoid region, and an 11 millimeter trocar was inserted under direct visualization. Two 5 millimeter incisions were made in the right upper quadrant, and two 5 millimeter trocars were inserted under direct visualization. The gallbladder was identified and grasped at the fundus and retracted superiorly. It was then grasped at the infundibulum retracted laterally. Careful dissection around the neck of the gallbladder was performed using blunt dissection with a [place] grasper and hook electrocautery. The cystic duct was identified, and a window was created behind it. The cystic artery was also identified and a window was created behind it. The critical view of safety was identified, visualizing the cystic duct running directly into the neck of the gallbladder, and the cystic artery running directly into the wall of the gallbladder. A 5 millimeter clip cocoa press operator was then used to place 2 clips proximally and 1 clip distally on the cystic artery. It was then transected using endoscopic scissors. I then placed a Crane clamp across the neck of the gallbladder and the Crane cholangiocatheter was advanced into the distal neck o
[2022-07-20 03:25] VITALS: BP 124/80; PULSE 86; RESP 17; TEMP 36.4; O2SAT 94
[2022-07-20] MEDS: ceFAZolin 2 GM/D5W 50 ML 2 GM/50 ML BAG IVPB ×2 (06:01→14:14)
[2022-07-20 06:35] LABS: Basophils Percent Auto 0.2 % (0.2-1.2); Hematocrit 37.9 % (37.0-47.0); Hemoglobin 12.4 g/dL (12.0-15.0); Immature Granulocyte Absolute 0.04 K/mm3 (0.00-0.031); Immature Granulocyte Percent A 0.4 % (0-0.5); Lymphocytes Absolute Auto 2.25 K/mm3 (0.9-3.2); Lymphocytes Percent Auto 20.2 % (18.3-44.2); Mean Corpuscular HGB Conc 32.7 g/dl (32-36); Mean Corpuscular Hemoglobin 30.8 pg (26-34); Mean Corpuscular Volume 94.3 fl (80-100); Monocytes Absolute Auto 0.7 K/mm3 (0.1-0.6); Monocytes Percent Auto 6.1 % (2.6-8.5); Neutrophils Absolute Auto 8.1 K/mm3 (1.3-6.7); Neutrophils Percent Auto 73.1 % (45.5-73.1); Platelet Count Result 378 k/mm3 (150-375); Red Blood Count 4.02 M/mm3 (4.2-5.4); Red Cell Distribution Width 15.7 % (11.5-14.5); White Blood Count 11.1 K/mm3 (4.5-10.0)
[2022-07-20 06:55] LABS: Alanine Aminotransferase 98 U/L (6-35); Albumin Level 3.7 g/dL (3.5-5.1); Alkaline Phosphatase 414 U/L (38-126); Anion Gap 7 mmol/L (8-16); Aspartate Amino Transferase 68 U/L (14-36); Bilirubin,Total 5.6 mg/dL (0.2-1.3); Blood Urea Nitrogen 8 mg/dL (7-17); Calcium 8.9 mg/dL (8.4-10.2); Carbon Dioxide 30 mmol/L (22-30); Chloride 100 mmol/L (98-107); Estimated CRCL calculation 110 ml/min; Estimated Glomerular Filt Rate > 60; Glucose 105 mg/dL (65-110); Potassium 3.3 mmol/L (3.4-5.0); Sodium 137 mmol/L (137-145)
[2022-07-20 07:47] VITALS: BP 143/92; PULSE 78; RESP 17; TEMP 36.8; O2SAT 97
[2022-07-20] MEDS: IBUPROFEN 600 MG TABLET PO ×3 (08:00→22:59)
[2022-07-20] MEDS: hydrALAZINE HCL 25 MG TABLET PO ×2 (08:02→21:13)
[2022-07-20] MEDS: FAMOTIDINE 20 MG/2 ML VIAL IV PUSH ×2 (08:02→21:13)
[2022-07-20] MEDS: hydroCHLOROthiazide 25 MG TABLET PO (08:02)
--- NOTE | 2022-07-20 09:23 | WPDGIPROGNO ---
Progress Note: A&P Assessment and Plan (1) Choledocholithiasis: Code(s): K80.50 - Calculus of bile duct without cholangitis or cholecystitis without obstruction Status: Acute Assessment and Plan: ercp with large size sphincterotomy then spyglass and EHL blasted large impacted stone then she underwent lap marcela, IOC found residual stones in bile duct and had good flow into the duodenum will do another ercp tomorrow to remove all stones (this time should be easier) bili down to 5 and less icteric (2) Obstructive jaundice: Code(s): K83.1 - Obstruction of bile duct Status: Acute Assessment and Plan: bili down to 5 and better after ercp with EHL will continue to monitor (3) Upper abdominal pain: Code(s): R10.10 - Upper abdominal pain, unspecified Status: Acute Assessment and Plan: mild discomfort (4) Cholelithiasis: Code(s): K80.20 - Calculus of gallbladder without cholecystitis without obstruction Status: Acute Assessment and Plan: s/p lap marcela Subjective Date/time seen: 07/20/22 09:23 Interval history: lap marcela yesterday, IOC found stones in bile duct (previous ERCP with EHL, destruction of large impacted stone) 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 but doing ok otherwise Review of Systems Review of Systems: All systems reviewed & are unremarkable except as noted in HPI and below Exam Const: General: comfortable; No acute distress Orientation/consciousness: patient oriented x3 HENMT: Face/Nose/Sinus: Normal nares present Eyes: Other: less icteric sclerae Neck: Neck: supple Resp: Effort & Inspection: normal respiratory effort Cardio: Rate: regular rate GI: Inspection: non-distended GI Palp: Yes Soft to palpation, Yes Tenderness to palpation present (GI) (mild tender from surgery), No Guarding due to palpation present (GI) and No Rebound tenderness present Auscultation: normal bowel sounds Skin: Other: less jaundice Neuro: Speech: normal speech Motor exam (neuro): 5/5 motor strength present throughout Extrem: General: normal to inspection Psych: Affect: normal affect Objective Data Vital Signs Vital Signs: Vital Signs - 24 hr 07/19/22 13:00 07/19/22 16:25 07/19/22 16:40 Temperature 98.6 F 97.8 F Pulse Rate 75 75 73 Respiratory Rate 16 24 H 20 Blood Pressure 139/73 145/80 H 150/89 H Pulse Oximetry 100 100 100 Oxygen Delivery Room Air Simple Face Mask Simple Face Mask Oxygen Flow Rate 8 8 07/19/22 16:55 07/19/22 17:10 07/19/22 17:25 Temperature Pulse Rate 80 76 79 Respiratory Rate 20 20 17 Blood Pressure 145/90 H 139/88 134/85 Pulse Oximetry 95 94 93 Oxygen Delivery Room Air Room Air Room Air Oxygen Flow Rate 07/19/22 17:35 07/19/22 17:55 07/19/22 17:55 Temperature 96.9 F L 96.6 F L Pulse Rate 83 75 72 Respiratory Rate 18 16 20 Blood Pressure 135/80 171/99 H 167/94 H Pulse Oximetry 95 98 99 Oxygen Delivery Room Air Oxygen Flow Rate 07/19/22 18:40 07/19/22 19:25 07/19/22 20:00 Temperature 96.6 F L 98.3 F Pulse Rate 79 91 91 Respiratory Rate 18 18 18 Blood Pressure 159/98 H 143/84 H Pulse Oximetry 99 99 99 Oxygen Delivery Room Air Oxygen Flow Rate 07/19/22 23:25 07/20/22 03:25 07/20/22 07:47 Temperature 98.4 F 97.6 F 98.3 F Pulse Rate 90 86 78 Respiratory Rate 18 17 17 Blood Pressure 129/78 124/80 143/92 H Pulse Oximetry 95 94 97 Oxygen Delivery Oxygen Flow Rate Intake/Output Intake/Output: Intake & Output 07/17/22 07/18/22 07/19/22 07/20/22 23:59 23:59 23:59 23:59 Intake Total 3740 250 650 450 Output Total 2700 0 1600 Balance 1040 250 -950 450 Meds/Results Medications: Active Medications Generic Name Dose Route Start Last Admin Trade Name Freq PRN Reason Stop Dose Admin Famotidine 20 mg 07/16/22 09:00 07/20/22 08:02 Famotidine 20 Mg/2 Ml Vial IV PUSH 20 mg Q12HR BOOM Administration Hydralazine H
--- NOTE | 2022-07-20 10:40 | PM.IMPN ---
Progress Note: A&P Assessment and Plan (1) Obstructive jaundice: Code(s): K83.1 - Obstruction of bile duct Status: Acute Assessment and Plan: watch cmp Status post lap choly with residual stone on IOC. ERCP (2) Cholelithiasis: Code(s): K80.20 - Calculus of gallbladder without cholecystitis without obstruction Status: Acute Assessment and Plan: sp ercp with findng of large obstructing stone (3) Hypokalemia: Code(s): E87.6 - Hypokalemia Status: Acute Assessment and Plan: Replace and recheck, magnesium within normal limits (4) Chronic GERD: Code(s): K21.9 - Gastro-esophageal reflux disease without esophagitis Status: Acute Assessment and Plan: Continue with IV Pepcid changed to oral (5) Choledocholithiasis: Code(s): K80.50 - Calculus of bile duct without cholangitis or cholecystitis without obstruction Status: Acute Assessment and Plan: Appreciate GI and surgery consultation, pt had ERCP Patient will benefit from lap marcela (6) HTN (hypertension): Code(s): I10 - Essential (primary) hypertension Status: Acute Assessment and Plan: new diagnosis htcz and hydralazine oral have been started bp much better today at 133/77 Subjective Date/time seen: 07/20/22 10:40 No new complaints Exam Narrative: General: No acute distress, alert young female HEENT: Atraumatic, normocephalic, mucous membranes moist CV: Regular rate and rhythm, S1, S2 Lungs: Clear to auscultation bilaterally, no rales or crackles noted, no wheezes, good air entry Abdomen: Soft, nontender, nondistended Extremities: Normal to inspection Skin: No rashes noted, no lesions or wounds seen Psych: Euthymic, normal affect Objective Data Vital Signs Vital Signs: Vital Signs - 24 hr 07/19/22 13:00 07/19/22 16:25 07/19/22 16:40 Temperature 98.6 F 97.8 F Pulse Rate 75 75 73 Respiratory Rate 16 24 H 20 Blood Pressure 139/73 145/80 H 150/89 H Pulse Oximetry 100 100 100 Oxygen Delivery Room Air Simple Face Mask Simple Face Mask Oxygen Flow Rate 8 8 07/19/22 16:55 07/19/22 17:10 07/19/22 17:25 Temperature Pulse Rate 80 76 79 Respiratory Rate 20 20 17 Blood Pressure 145/90 H 139/88 134/85 Pulse Oximetry 95 94 93 Oxygen Delivery Room Air Room Air Room Air Oxygen Flow Rate 07/19/22 17:35 07/19/22 17:55 07/19/22 17:55 Temperature 96.9 F L 96.6 F L Pulse Rate 83 75 72 Respiratory Rate 18 16 20 Blood Pressure 135/80 171/99 H 167/94 H Pulse Oximetry 95 98 99 Oxygen Delivery Room Air Oxygen Flow Rate 07/19/22 18:40 07/19/22 19:25 07/19/22 20:00 Temperature 96.6 F L 98.3 F Pulse Rate 79 91 91 Respiratory Rate 18 18 18 Blood Pressure 159/98 H 143/84 H Pulse Oximetry 99 99 99 Oxygen Delivery Room Air Oxygen Flow Rate 07/19/22 23:25 07/20/22 03:25 07/20/22 07:47 Temperature 98.4 F 97.6 F 98.3 F Pulse Rate 90 86 78 Respiratory Rate 18 17 17 Blood Pressure 129/78 124/80 143/92 H Pulse Oximetry 95 94 97 Oxygen Delivery Oxygen Flow Rate Intake/Output Intake/Output: Intake & Output 07/17/22 07/18/22 07/19/22 07/20/22 23:59 23:59 23:59 23:59 Intake Total 3740 250 650 450 Output Total 2700 0 1600 Balance 1040 250 -950 450 Meds/Results Medications: Active Medications Generic Name Dose Route Start Last Admin Trade Name Freq PRN Reason Stop Dose Admin Famotidine 20 mg 07/16/22 09:00 07/20/22 08:02 Famotidine 20 Mg/2 Ml Vial IV PUSH 20 mg Q12HR BOOM Administration Hydralazine HCl 5 mg 07/17/22 18:59 07/17/22 22:27 Hydralazine Hcl 20 Mg/Ml Vial IV PUSH 5 mg Q8H PRN Administration Blood Pressure - High Hydralazine HCl 25 mg 07/17/22 21:00 07/20/22 08:02 Hydralazine Hcl 25 Mg Tablet PO 25 mg Q12HR BOOM Administration Hydrochlorothiazide 25 mg 07/18/22 09:00 07/20/22 08:02 Hydrochlorothiazide 25 Mg Tablet
--- NOTE | 2022-07-20 11:15 | WPDANESPN ---
Anes - Prog Note Post-Op Date/Time: 07/20/22 11:15 Cardiovascular status: normal Respiratory status: normal Airway patency: baseline Mental status: baseline Post-Op hydration status: normal Vital Signs: Last Vital Signs Temp 98.3 F 07/20/22 07:47 Pulse 78 07/20/22 07:47 Resp 17 07/20/22 07:47 BP 143/92 H 07/20/22 07:47 Pulse Ox 97 07/20/22 07:47 O2 Del Method Room Air 07/19/22 20:00 O2 Flow Rate 8 07/19/22 16:40 Pain Score (VAS): 0 I/O: Intake & Output 07/19/22 07/20/22 07/20/22 23:59 07:59 15:59 Intake Total 100 450 Output Total 800 Balance -700 450 Laboratory Tests 07/20/22 06:01 07/20/22 06:01 07/20/22 07/20/22 06:01 06:01 WBC 11.1 H RBC 4.02 L Hgb 12.4 Hct 37.9 MCV 94.3 MCH 30.8 MCHC 32.7 RDW 15.7 H Plt Count 378 H MPV 10.0 Immature Gran % (Auto) 0.4 Neut % (Auto) 73.1 Lymph % (Auto) 20.2 [place] % (Auto) 6.1 Eos % (Auto) 0.0 Baso % (Auto) 0.2 Lymph # (Auto) 2.25 [place] # (Auto) 0.7 H Eos # (Auto) 0.0 Baso # (Auto) 0.0 Abs Immat Gran (auto) 0.04 H Absolute Neuts (auto) 8.1 H Absolute Nucleated RBC 0.0 Nucleated RBC % 0.0 Sodium 137 Potassium 3.3 L Chloride 100 Carbon Dioxide 30 Anion Gap 7 L BUN 8 Creatinine 0.60 L Estim Creat Clear Calc 110 Estimated GFR > 60 Glucose 105 Calcium 8.9 Total Bilirubin 5.6 H AST 68 H ALT 98 H Alkaline Phosphatase 414 H Total Protein 7.0 Albumin 3.7 Post-procedural complaints: none Patient Feedback: Patient satisfied with anesthetic care.
[2022-07-20 11:25] VITALS: BP 120/78; PULSE 81; RESP 17; TEMP 36.1; O2SAT 97
--- NOTE | 2022-07-20 12:17 | PM.PNGS ---
Progress Note: A&P Assessment and Plan (1) Cholelithiasis: Code(s): K80.20 - Calculus of gallbladder without cholecystitis without obstruction Status: Acute Assessment and Plan: S/p laparoscopic cholecystectomy with IOC yesterday. Cholangiogram showed still at least 2 common duct stones. Discussed these findings with GI, who is planning ERCP tomorrow. She is doing well from a surgical standpoint today. Will await ERCP results. (2) Choledocholithiasis: Code(s): K80.50 - Calculus of bile duct without cholangitis or cholecystitis without obstruction Status: Acute Assessment and Plan: Still with common duct stones on intraoperative cholangiogram yesterday, although her bilirubin has come down again today to 5.6. GI planning ERCP tomorrow. Plan I have discussed the patient's case and plan of care with Dr. Moreno. Subjective Subjective Date/Time Seen: 07/20/22 09:17 Post Op day: 1 (Laparoscopic Cholecystectomy with cholangiogram) Patient reports: tolerating liquids well, voiding w/o difficulty, flatus and no bowel movement Interval history: Patient seen this morning and reportedly doing well. She is tolerating clear liquids without any nausea or bloating. She has some mild post-operative soreness at her incisions, but this is tolerable and being controlled with ibuprofen. Tbili trended down again this morning to 5.6, but she did have evidence of still common duct stones on IOC during surgery yesterday. Review of Systems Review of Systems: All systems reviewed & are unremarkable except as noted in HPI and below Exam Const: General: comfortable and no acute distress Orientation/consciousness: patient oriented x3 GI: Inspection: non-distended and incision (incisions dry and intact) GI Palp: Yes Soft to palpation and Yes Tenderness to palpation present (GI) (incisional) Auscultation: normal bowel sounds Skin: General skin exam: jaundice Neuro: General: moves all extremities and no focal motor deficits Extrem: General: no calf tenderness and no edema Psych: Mental Status: mental status grossly normal Insight: Good insight present (Psych) Objective Data Vital Signs Vital Signs: Vital Signs - 24 hr 07/19/22 13:00 07/19/22 16:25 07/19/22 16:40 Temperature 98.6 F 97.8 F Pulse Rate 75 75 73 Respiratory Rate 16 24 H 20 Blood Pressure 139/73 145/80 H 150/89 H Pulse Oximetry 100 100 100 Oxygen Delivery Room Air Simple Face Mask Simple Face Mask Oxygen Flow Rate 8 8 07/19/22 16:55 07/19/22 17:10 07/19/22 17:25 Temperature Pulse Rate 80 76 79 Respiratory Rate 20 20 17 Blood Pressure 145/90 H 139/88 134/85 Pulse Oximetry 95 94 93 Oxygen Delivery Room Air Room Air Room Air Oxygen Flow Rate 07/19/22 17:35 07/19/22 17:55 07/19/22 17:55 Temperature 96.9 F L 96.6 F L Pulse Rate 83 75 72 Respiratory Rate 18 16 20 Blood Pressure 135/80 171/99 H 167/94 H Pulse Oximetry 95 98 99 Oxygen Delivery Room Air Oxygen Flow Rate 07/19/22 18:40 07/19/22 19:25 07/19/22 20:00 Temperature 96.6 F L 98.3 F Pulse Rate 79 91 91 Respiratory Rate 18 18 18 Blood Pressure 159/98 H 143/84 H Pulse Oximetry 99 99 99 Oxygen Delivery Room Air Oxygen Flow Rate 07/19/22 23:25 07/20/22 03:25 07/20/22 07:47 Temperature 98.4 F 97.6 F 98.3 F Pulse Rate 90 86 78 Respiratory Rate 18 17 17 Blood Pressure 129/78 124/80 143/92 H Pulse Oximetry 95 94 97 Oxygen Delivery Oxygen Flow Rate 07/20/22 11:25 Temperature 97.0 F L Pulse Rate 81 Respiratory Rate 17 Blood Pressure 120/78 Pulse Oximetry 97 Oxygen Delivery Oxygen Flow Rate Intake/Output Intake/Output: Intake & Output 07/17/22 07/18/22 07/19/22 07/20/22 23:59 23:59 23:59 23:59 Intake Total 3740 010 045 0793 Output Total 2700 0 1600 Balance 1040 250 -950 1020 Meds/Results Medications: Active Medications Generic Name Dose Route Start Last Admin Trade Name Freq PRN Reason Stop Dose A
[2022-07-20 15:25] VITALS: BP 117/79; PULSE 75; RESP 17; TEMP 36.1; O2SAT 98
[2022-07-20 20:00] VITALS: PULSE 84; RESP 16; O2SAT 98
[2022-07-20 21:28] VITALS: BP 129/86; PULSE 84; RESP 16; TEMP 36.6; O2SAT 98
[2022-07-21] VITALS (10 sets, daily range): BP systolic 120–138; BP diastolic 69–90; PULSE 73–88; RESP 13–20; TEMP 36.1–36.3; O2SAT 96–100
[2022-07-21 06:21] LABS: Basophils Absolute Auto 0.1 K/mm3 (0.0-0.1); Basophils Percent Auto 0.7 % (0.2-1.2); Eosinophils Absolute Auto 0.1 K/mm3 (0-0.3); Eosinophils Percent Auto 1.3 % (0-4.4); Hematocrit 37.8 % (37.0-47.0); Hemoglobin 12.4 g/dL (12.0-15.0); Immature Granulocyte Absolute 0.06 K/mm3 (0.00-0.031); Immature Granulocyte Percent A 0.6 % (0-0.5); Lymphocytes Absolute Auto 3.43 K/mm3 (0.9-3.2); Mean Corpuscular HGB Conc 32.8 g/dl (32-36); Mean Corpuscular Hemoglobin 31.1 pg (26-34); Mean Corpuscular Volume 94.7 fl (80-100); Mean Platelet Volume 9.7 fl (7.4-10.4); Monocytes Absolute Auto 0.8 K/mm3 (0.1-0.6); Neutrophils Absolute Auto 5.3 K/mm3 (1.3-6.7); Neutrophils Percent Auto 54.4 % (45.5-73.1); Platelet Count Result 372 k/mm3 (150-375); Red Blood Count 3.99 M/mm3 (4.2-5.4); Red Cell Distribution Width 15.4 % (11.5-14.5); White Blood Count 9.8 K/mm3 (4.5-10.0)
[2022-07-21 06:37] LABS: Alanine Aminotransferase 98 U/L (6-35); Albumin Level 3.6 g/dL (3.5-5.1); Alkaline Phosphatase 364 U/L (38-126); Anion Gap 6 mmol/L (8-16); Aspartate Amino Transferase 146 U/L (14-36); Bilirubin,Total 6.2 mg/dL (0.2-1.3); Blood Urea Nitrogen 7 mg/dL (7-17); Calcium 8.6 mg/dL (8.4-10.2); Carbon Dioxide 30 mmol/L (22-30); Chloride 100 mmol/L (98-107); Estimated CRCL calculation 110 ml/min; Estimated Glomerular Filt Rate > 60; Glucose 96 mg/dL (65-110); Potassium 3.1 mmol/L (3.4-5.0); Sodium 136 mmol/L (137-145)
[2022-07-21] MEDS: hydrALAZINE HCL 25 MG TABLET PO (08:11)
[2022-07-21] MEDS: FAMOTIDINE 20 MG/2 ML VIAL IV PUSH (08:11)
[2022-07-21] MEDS: hydroCHLOROthiazide 25 MG TABLET PO (08:11)
[2022-07-21] MEDS: IBUPROFEN 600 MG TABLET PO (08:33)
[2022-07-21] MEDS: LACTATED RINGERS 1,000 ML 150 ML IV CONT (12:57)
--- NOTE | 2022-07-21 13:00 | WPDANESEPPF ---
Anes - Initial Pre Proc Eval Procedure: Operation Date: 07/18/22 10:30 Proposed Procedures p Endoscopic Retro Cholangiopancreatogram - Marty Barrera MD Operation Date: 07/19/22 15:00 Proposed Procedures p Laparoscopic Cholecystectomy - Eddie Moreno DO Operation Date: 07/21/22 14:15 Proposed Procedures p Endoscopic Retro Cholangiopancreatogram - Marty Barrera MD Date/Time: 07/21/22 13:00 Surgeon: Mamadou Wade MD Pre Op Diagnosis: choledocholithiasis Patient Data Age: 37 Gender: F Height: 1.55 m Weight: 88.45 kg Last Vital Signs Temp 97 F L 07/21/22 04:45 Pulse 82 07/21/22 12:25 Resp 16 07/21/22 12:25 BP 132/83 07/21/22 12:25 Pulse Ox 100 07/21/22 12:25 O2 Del Method Room Air 07/21/22 12:25 O2 Flow Rate 8 07/19/22 16:40 Allergies Allergy/AdvReac Type Severity Reaction Status Date / Time tramadol Allergy Unknown UNKNOWN Verified 07/21/22 12:36 Home Medications Medication Instructions Recorded Confirmed Type nitrofurantoin 100 mg PO Q12H 7 days #14 caps 12/22/21 07/21/22 Rx monohydrate/macrocrystals 100 mg capsule (Macrobid) ondansetron 4 mg disintegrating 4 mg PO Q6H PRN nausea and 12/22/21 07/21/22 Rx tablet vomiting #14 tabs pantoprazole 40 mg tablet,delayed 40 mg PO QAM #30 tabs 12/22/21 07/21/22 Rx release (Protonix) acetaminophen 500 mg tablet 500 mg PO Q6H PRN Headache 07/15/22 07/21/22 History famotidine 20 mg tablet 20 mg PO DAILY 07/15/22 07/21/22 History Laboratory Tests 07/21/22 07/21/22 06:06 06:06 WBC 9.8 K/mm3 K/mm3 (4.5-10.0) RBC 3.99 M/mm3 L M/mm3 (4.2-5.4) Hgb 12.4 g/dL g/dL (12.0-15.0) Hct 37.8 % % (37.0-47.0) MCV 94.7 fl fl (80-100) MCH 31.1 pg pg (26-34) MCHC 32.8 g/dl g/dl (32-36) RDW 15.4 % H % (11.5-14.5) Plt Count 372 k/mm3 k/mm3 (150-375) MPV 9.7 fl fl (7.4-10.4) Immature Gran % (Auto) 0.6 % H % (0-0.5) Neut % (Auto) 54.4 % % (45.5-73.1) Lymph % (Auto) 35.0 % % (18.3-44.2) Garza % (Auto) 8.0 % % (2.6-8.5) Eos % (Auto) 1.3 % % (0-4.4) Baso % (Auto) 0.7 % % (0.2-1.2) Lymph # (Auto) 3.43 K/mm3 H K/mm3 (0.9-3.2) Garza # (Auto) 0.8 K/mm3 H K/mm3 (0.1-0.6) Eos # (Auto) 0.1 K/mm3 K/mm3 (0-0.3) Baso # (Auto) 0.1 K/mm3 K/mm3 (0.0-0.1) Abs Immat Gran (auto) 0.06 K/mm3 H K/mm3 (0.00-0.031) Absolute Neuts (auto) 5.3 K/mm3 K/mm3 (1.3-6.7) Absolute Nucleated RBC 0.0 K/mm3 K/mm3 (0.0-0.012) Nucleated RBC % 0.0 % % (0.0-0.2) Sodium 136 mmol/L L mmol/L (137-145) Potassium 3.1 mmol/L L mmol/L (3.4-5.0) Chloride 100 mmol/L mmol/L (98-107) Carbon Dioxide 30 mmol/L mmol/L (22-30) Anion Gap 6 mmol/L L mmol/L (8-16) BUN 7 mg/dL mg/dL (7-17) Creatinine 0.60 mg/dL L mg/dL (0.7-1.0) Estim Creat Clear Calc 110 ml/min ml/min Estimated GFR > 60 (59 - ) Glucose 96 mg/dL mg/dL (65-110) Calcium 8.6 mg/dL mg/dL (8.4-10.2) Total Bilirubin 6.2 mg/dL H mg/dL (0.2-1.3) AST 146 U/L H U/L (14-36) ALT 98 U/L H U/L (6-35) Alkaline Phosphatase 364 U/L H U/L (38-126) Total Protein 7.0 g/dL g/dL (6.3-8.2) Albumin 3.6 g/dL g/dL (3.5-5.1) Patient hx anesthesia problems: none Family hx anesthesia problems: none Results Review: All pre-operative results and documents have been reviewed as part of the pre-operative evaluation. [facility] Past Medical History Medical History Choledocholithiasis Cholelithiasis Chronic GERD Obstructive jaundice Upper abdominal pain Surgical History Surgical History H/O section Family History Family History (Re
--- NOTE | 2022-07-21 16:14 | PC.NURSE ---
On 07/21/22, the license pending nurse Juana, provided care and completed [employer] documentation on this patient. I have reviewed the student's documentation and agree with the findings.
--- NOTE | 2022-07-21 17:43 | PC.NURSE ---
Pt tolerated dinner, no complaints of nausea. Pt OK to discharge.
--- NOTE | 2022-08-21 07:38 | PM.DS ---
DS: Admitting Diagnosis Discharge Date 07/21/22 Admitting Diagnosis choledocolithiasis DS: Discharge Diagnosis Discharge Diagnosis (1) Obstructive jaundice: Code(s): K83.1 - Obstruction of bile duct Status: Acute Assessment and Plan: watch cmp Status post lap choly with residual stone on IOC. ERCP (2) Cholelithiasis: Code(s): K80.20 - Calculus of gallbladder without cholecystitis without obstruction Status: Acute Assessment and Plan: sp ercp with findng of large obstructing stone (3) Hypokalemia: Code(s): E87.6 - Hypokalemia Status: Acute Assessment and Plan: Replace and recheck, magnesium within normal limits (4) Chronic GERD: Code(s): K21.9 - Gastro-esophageal reflux disease without esophagitis Status: Acute Assessment and Plan: Continue with IV Pepcid changed to oral (5) Choledocholithiasis: Code(s): K80.50 - Calculus of bile duct without cholangitis or cholecystitis without obstruction Status: Acute Assessment and Plan: Appreciate GI and surgery consultation, pt had ERCP Patient will benefit from lap marcela (6) HTN (hypertension): Code(s): I10 - Essential (primary) hypertension Status: Acute Assessment and Plan: new diagnosis htcz and hydralazine oral have been started bp much better today at 133/77 DS: Summary Hospital Course Hospital Course: admitted for choledocolithiasis - sp lap marcela w IOC - tolerating diet, fu surgery as outpatient, ok for dc Time Spent with Patient Time attestation: Total time spent providing and/or coordinating discharge services: Exam Narrative: General: No acute distress, alert young female HEENT: Atraumatic, normocephalic, mucous membranes moist CV: Regular rate and rhythm, S1, S2 Lungs: Clear to auscultation bilaterally, no rales or crackles noted, no wheezes, good air entry Abdomen: Soft, nontender, nondistended Extremities: Normal to inspection Skin: No rashes noted, no lesions or wounds seen Psych: Euthymic, normal affect DS: Data Data Completed and Pending Completed studies during hospitalization: Pending at discharge 07/19/22 16:10 Surgical [PTH] Routine Discharge Plan Discharge Attending physician on discharge: John Carmichael Consulting providers: Marty Barrera; Eddie Badillo; Mago Nunez; Jian Bautista; Wilfredo Rodas; Sara Villalta; Trudi Washington; Migdalia Ordoñez Discharging Clinician: John Carmichael Patient Disposition: Home, Self-Care Activity: other - see discharge instructions Diet: low fat Wound Care Instructions: other - see discharge instructions Discharge Instructions: DISCHARGE INSTRUCTION SHEET FOR HERNIA, GALLBLADDER AND APPENDIX SURGERIES DR. BADILLO PATIENT TO TAKE HOME 1. May shower, no soaking in bath x 2weeks. 2. Call office for: Wound increasingly painful or bleeding Vomiting Fever of greater than 101 degrees 3. If no bowel movement for three days, take 1 oz. (30 ml) Milk of Magnesia or MiraLax 17g 1 to 2 times daily. 4. No heavy lifting > 10-15 pounds x 2 weeks for laparoscopic cholecystectomy or appendectomy. 5. No driving for 3 days or while taking narcotic pain medications. 6. Ice to surgical site for 48 hours (30 min on, then 30 min off). 7. Up walking 10-30 minutes three times per day. 8. Resume previous home medications. 9. Follow-up 10-14 days in office for wound check or as previously scheduled. ([id number]) 10. Oral pain medications prescription to be sent to pharmacy. Take Tylenol 500mg every 6 hours and Ibuprofen 600mg every 6 hours for the first 2 days, then as needed. 11. NUTRITION: Start out by drinking fluids and increase your diet as tolerated. If you experience nausea, try dry toast, crackers, and 7-UP. If nausea or vo
== END 2022-07-21 17:44 | disposition home or self-care (01) | DRG 263 ==
LOC: ANHED 14:40 → ANH3MEDSUR 17:59
PROVIDERS: Internal Medicine Gastroenterology; Nurse Practitioner; Physician Assistant; Student in an Organized Health Care Education/Training Program; Surgery; Admitting Provider Family Medicine; Emergency Provider Emergency Medicine; Visit Provider Chiropractor
PROC: 0FC98ZZ Extirpation of Matter from Common Bile Duct, Via Natural or Artificial Opening Endoscopic (ICD-10-PCS; CPT 43260; principal; 2022-07-18 10:30)
PROC: 0FT44ZZ Resection of Gallbladder, Percutaneous Endoscopic Approach (ICD-10-PCS; CPT 47562; principal; 2022-07-19 15:00)
DX: K80.67 Calculus of gallbladder and bile duct with acute and chronic cholecystitis with obstruction (principal); E66.9 Obesity, unspecified; K21.9 Gastro-esophageal reflux disease without esophagitis; E87.6 Hypokalemia; I10 Essential (primary) hypertension; Z68.36 Body mass index [BMI] 36.0-36.9, adult; F17.290 Nicotine dependence, other tobacco product, uncomplicated
CPT/HCPCS: 36415; 71275; 74177; 74300; 74329; 80048; 80053; 80074; 81001; 81025; 82140; 83690; 83735; 84100; 84443; 85025; 88304; 96361; 96365; 96366; 96374; 96375; 96376; 99285; A9270; G0378; J0330; J0360; J0690; J1100; J1170; J2250; J2405; J2704; J3010; J3480; J7030; J7040; J7120; Q9966; Q9967